=== PATIENT | male | born 1935 | race Caucasian/White ===

== ENCOUNTER 2018-10-22 18:35 | Inpatient (IN) | payer BC, OTHER ==
[2018-10-22] MEDS ORDERED: ACETAMINOPHEN 1000 MG/100 ML VIAL (NON FORMULARY) IVPB ONE ×2 (18:50→19:13)
[2018-10-22] MEDS ORDERED: ACETAMINOPHEN INJECTION 100 ML IVPB ONE (19:08)
[2018-10-22] MEDS ORDERED: ALBUTEROL SO4 2.5/IPRATROPIUM 0.5 INH SOL 3 ML VIAL.NEB. NEB ONE ×4 (19:09→20:50)
--- NOTE | 2018-10-22 19:13 | PDOC ---
History of Present Illness - History of Present Illness Initial Comments: 10/22/18 19:29 The patient is a 83 year old male, with a significant past medical history of Afib (s/p defibrillator), HTN, HLD, ?CVA, who presents to the emergency department with, 2 days of fever, cough, shortness of breath, and nausea with emesis. Patient describes his cough as productive and he is positive for sick contacts (his ). He denies any recent headache or dizziness. He denies any recent diarrhea or constipation. He denies any recent chest pain, palpitations, or diaphoresis. He denies any recent dysuria, frequency, urgency or hematuria. Allergies: NKA Past surgical history: None reported. Social History: Nonsmoker. Denies EtOH use and recreational drug use. Primary Care Physician: Dr. Onofre <Miki Stevenson - Last Filed: 10/22/18 19:28> - General History Source: Patient Exam Limitations: No Limitations <Milagros Fuller - Last Filed: 10/22/18 22:33> - General Chief Complaint: Shortness of Breath Stated Complaint: SOB Past History <Miki Stevenson - Last Filed: 10/22/18 19:28> - Past Medical History Cardiac Disorders: Yes (DEFIBULATOR, AFIB) COPD: No HTN: Yes Hypercholesterolemia: Yes - Surgical History Cardiac Surgery: Yes (DEFIB) - Suicide/Smoking/Psychosocial Hx Smoking History: Never smoked Hx Alcohol Use: No Drug/Substance Use Hx: No <Milagros Fuller - Last Filed: 10/22/18 22:33> - Past Medical History Allergies/Adverse Reactions: Allergies Allergy/AdvReac Type Severity Reaction Status Date / Time No Known Allergies Allergy Verified 10/22/18 18:36 Home Medications: Ambulatory Orders Carvedilol [Coreg -] 18.75 mg PO BID 10/22/18 Furosemide [Lasix] 20 mg PO DAILY 10/22/18 Lisinopril [Zestril] 5 mg PO DAILY 10/22/18 Rivaroxaban [Xarelto -] 20 mg PO DAILY 10/22/18 Simvastatin [Zocor -] 20 mg PO HS 10/22/18 Review of Systems - Review of Systems Comments:: 10/22/18 19:29 +GENERAL/CONSTITUTIONAL: Fever. Chills. HEAD, EYES, EARS, NOSE AND THROAT: No change in vision. No ear pain or discharge. No sore throat. +CARDIOVASCULAR: SOB. No chest pain. +RESPIRATORY: Cough. No wheezing, or hemoptysis. +GASTROINTESTINAL: Nausea. Vomiting. No diarrhea or constipation. GENITOURINARY: No dysuria, frequency, or change in urination. MUSCULOSKELETAL: No joint or muscle swelling or pain. No neck or back pain. SKIN: No rash NEUROLOGIC: No headache, vertigo, loss of consciousness, or change in strength/ sensation. ENDOCRINE: No increased thirst. No abnormal weight change. HEMATOLOGIC/LYMPHATIC: No anemia, easy bleeding, or history of blood clots. ALLERGIC/IMMUNOLOGIC: No hives or skin allergy. All Other Systems: Reviewed and Negative <Miki Stevenson - Last Filed: 10/22/18 19:28> *Physical Exam - Vital Signs Last Vital Signs Temp Pulse Resp BP Pulse Ox 103.0 F H 92 H 21 H 120/73 96 10/22/18 18:52 10/22/18 18:36 10/22/18 18:36 10/22/18 18:36 10/22/18 19:08 <Miki Stevenson - Last Filed: 10/22/18 19:28> - Vital Signs Last Vital Signs Temp Pulse Resp BP Pulse Ox 103.0 F H 92 H 21 H 120/73 96 10/22/18 18:52 10/22/18 18:36 10/22/18 18:36 10/22/18 18:36 10/22/18 19:08 - Physical Exam Comments: 10/22/18 19:13 pt tachypneic, tachycardia, hypoxic 95% on room air, lung exam with bilat wheezes at bases and decreased air flow on expiration. heart irreg reg tachycardia. no mrg. abd soft nt nd. ext wwp no edema. no calf tendernss. skin warma nd dry no rash. alert oriented x 3. <Milagros Fuller - Last Filed: 10/22/18 22:33> Moderate Sedation - Procedure Monitoring Vital Signs: Procedure Monitoring Vital Signs Temperature 103.0 F H 10/22/18 18:52 Pulse Rate 92 H 10/22/18 18:36 Respiratory Rate 21 H 10/22/18 18:36 Blood Pressure 120/73 10/22/18 18:36 O2 Sat by Pulse Oximetry (%) 96 10/22/18 19:08 <Miki Stevenson - Last Filed: 10/22/18 19:28> - Procedure Monitoring Vital Signs: Procedure Monitoring Vital Signs Temperature 103.0 F H 10/22/18 18:52 Pulse Rate 92 H 10/22/18 18:36 Respiratory Rate 21 H 10/22/18 18:36 Blood Pressure 120/73 10/22/18 18:36 O2 Sat by Pulse Oximetry (%) 96 10/22/18 19:08 <Milagros Fuller - Last Filed: 10/22/18 22:33> ED Treatment Course - LABORATORY CBC & Chemistry Diagram: 10/22/18 19:07 10/22/18 19:07 - Medications Given in the ED: ED Medications Discontinued Medications Generic Name Dose Route Start Last Admin Trade Name Freq PRN Reason Stop Dose Admin Acetaminophen 1,000 mg 10/22/18 18:50 10/22/18 19:19 Ofirmev Injection - IVPB 10/22/18 18:51 1,000 mg ONCE ONE Administration <Miki Stevenson - Last Filed: 10/22/18 19:28> - LABORATORY CBC & Chemistry Diagram: 10/22/18 19:07 10/22/18 19:07 <Milagros Fuller - Last Filed: 10/22/18 22:33> Medical Decision Making - Medical Decision Making 10/22/18 19:10 83 yo male h/o afib, pacer, chf htn HLD here with c/o cough congestion and fever. started night prior. positive sick contact with cough. cough productive phlegm. does have associated n/v no h/o lung disease. no rash. no abd pain. no other complaints. no modfactors. did not take any medication priroto arrival. on exam pt tachypneic, tachycardia, hypoxic 95% on room air, lung exam with bilat wheezes at bases and decreased air flow on expiration. heart irreg reg tachycardia. no mrg. abd soft nt nd. ext wwp no edema. no calf tendernss. skin warma nd dry no rash. alert oriented x 3. differential: chf, pna, effusion, influenzae, afib with rvr. sepsis. uti, plan labs ua cultures. flu duoneb for wheezing. will give rat control after fluid hydration pending cxr r/o chf. labs tylenol reassess. will require admission. 10/22/18 19:13 10/22/18 20:56 d/w dr Blue Wong who states he does not admit to [place] ask to admit to hospitalist. pt HR is improved to 95 with fever control. breathing improved with duoneb. will provide second neb. awaiting flu swab. given ceftriaxone and azithromycin for infiltrate on xray. 10/22/18 22:32 following second neb pt oxygen sat 100 on 2 L, breathing comfortably, heart rate 98, awaiting bed placement. c/w quarry plug and feather driller marko vela who will come to evaluate pt for admission. <Milagros Fuller - Last Filed: 10/22/18 22:33> *DC/Admit/Observation/Transfer - Attestations Scribe Attestion: 10/22/18 19:29 Documentation prepared by Miki Stevenson, acting as ophthalmic medical technologist for Milagros Fuller MD. <Miki Stevenson - Last Filed: 10/22/18 19:28> - Discharge Dispostion Decision to Admit order: Yes <Milagros Fuller - Last Filed: 10/22/18 22:33> Diagnosis at time of Disposition: Pneumonia, Atrial fibrillation with RVR - Discharge Dispostion Condition at time of disposition: Stable - Referrals Referrals: Casey Onofre MD [Primary Care Provider] - - Patient Instructions - Post Discharge Activity
[2018-10-22 19:27] LABS: BASO % 1.5 % (0-2.0); EOS % 0.3 % (0-4.5); HEMOGLOBIN 14.7 GM/dl (11.7-16.9); MEAN CELL VOLUME 90.4 fl (80-96); MEAN PLT VOLUME 9.9 fl (7.5-11.1); MONO % 7.5 % (3.8-10.2); NEUT % 84.7 % (42.8-82.8); PLATELET COUNT 174 K/MM3 (134-434); RBC 5.09 M/mm3 (4.00-5.60); RDW 14.2 % (11.9-15.9)
[2018-10-22 19:32] LABS: ACTIVATED PTT 27.5 SECONDS (25.2-36.5)
[2018-10-22 19:34] LABS: ALBUMIN 3.9 g/dl (3.5-5.0); ALK PHOS 51 U/L (32-92); ANION GAP 11 MMOL/L (8-16); BILIRUBIN,TOTAL 1.2 mg/dl (0.2-1.0); BLOOD UREA NITROGEN 23 mg/dl (7-18); CALCIUM 8.6 mg/dl (8.4-10.2); CHLORIDE 100 mmol/L (98-107); CO2 22 mmol/L (22-28); CREATININE 1.2 mg/dl (0.6-1.3); GLUCOSE,RANDOM 204 mg/dl (74-106); POTASSIUM 4.3 mmol/L (3.5-5.1); SGOT/AST 32 U/L (10-42); SGPT/ALT 28 U/L (10-40); SODIUM 133 mmol/L (136-145); TOT PROT 7.3 g/dl (6.4-8.3)
[2018-10-22 19:36] LABS: INR 1.39 (0.82-1.09); PROTHROMBIN TIME (PATIENT) 15.5 SEC (10.2-13.0)
[2018-10-22] MEDS ORDERED: CEFTRIAXONE 1,000 MG in DEXTROSE 5%-WATER - 50 ML IVPB ONE (20:11)
[2018-10-22] MEDS ORDERED: AZITHROMYCIN IVPB 500 MG in DEXTROSE 5%-WATER - 250 ML IVPB ONE (20:11)
[2018-10-22] MEDS ORDERED: AZITHROMYCIN 500 MG VIAL IVPB ONE (20:18)
[2018-10-22] MEDS ORDERED: cefTRIAXone SODIUM 1 GM VIAL ONE (20:18)
[2018-10-22 20:43] LABS: VENOUS PC02 40.4 mmHg (38-52); VENOUS PH 7.39 (7.32-7.42); VENOUS PO2 54.9 mmHg (28-48)
[2018-10-22] MEDS ORDERED: SODIUM CHLORIDE 1,000 ML IV SCH (21:45)
--- NOTE | 2018-10-22 21:52 | HP ---
CHIEF COMPLAINT:Shortness of breath PCP:Kingston Dooley HISTORY OF PRESENT ILLNESS: Samantha Middleton is a 83 yr old M, with a significant past medical history of Afib (s/p defibrillator), HTN, HLD, ?CVA, who presents to the emergency department with, 2 days of fever, cough, shortness of breath, and nausea with emesis. Patient with dry cough, also ill at home. pt in ED reported in Afib with RVR, after duonebs and Fluids, HR went down to 90 's. BNP elevated 6681 ER course was notable for: (1)Febrile 103 (2) Afib w/RVR (3)Tachypneic Recent Travel: PAST MEDICAL HISTORY:Afib, s/p defibrillator, HTN, HLD, CVA PAST SURGICAL HISTORY:Defibrillator Social History: Smoking:Denies Alcohol:Denies Drugs: Denies Family History: Allergies No Known Allergies Allergy (Verified 10/22/18 18:36) HOME MEDICATIONS: Home Medications Medication Instructions Recorded Carvedilol [Coreg -] 18.75 mg PO BID 10/22/18 Furosemide [Lasix] 20 mg PO DAILY 10/22/18 Lisinopril [Zestril] 5 mg PO DAILY 10/22/18 Rivaroxaban [Xarelto -] 20 mg PO DAILY 10/22/18 Simvastatin [Zocor -] 20 mg PO HS 10/22/18 REVIEW OF SYSTEMS CONSTITUTIONAL: Absent: fever, chills, diaphoresis, generalized weakness, malaise, loss of appetite, weight change HEENT: Absent: rhinorrhea, nasal congestion, throat pain, throat swelling, difficulty swallowing, mouth swelling, ear pain, eye pain, visual changes CARDIOVASCULAR: Absent: chest pain, syncope, palpitations, irregular heart rate, lightheadedness , peripheral edema RESPIRATORY: +Cough, sob, Absent: dyspnea with exertion, orthopnea, wheezing, stridor, hemoptysis GASTROINTESTINAL: Absent: abdominal pain, abdominal distension, nausea, vomiting, diarrhea, constipation, melena, hematochezia GENITOURINARY: Absent: dysuria, frequency, urgency, hesitancy, hematuria, flank pain, genital pain MUSCULOSKELETAL: Absent: myalgia, arthralgia, joint swelling, back pain, neck pain SKIN: Absent: rash, itching, pallor HEMATOLOGIC/IMMUNOLOGIC: Absent: easy bleeding, easy bruising, lymphadenopathy, frequent infections ENDOCRINE: Absent: unexplained weight gain, unexplained weight loss, heat intolerance, cold intolerance NEUROLOGIC: Absent: headache, focal weakness or paresthesias, dizziness, unsteady gait, seizure, mental status changes, bladder or bowel incontinence PSYCHIATRIC: Absent: anxiety, depression, suicidal or homicidal ideation, hallucinations. PHYSICAL EXAMINATION Vital Signs - 24 hr 10/22/18 10/22/18 10/22/18 18:36 18:52 19:08 Temperature 97.7 F 103.0 F H Pulse Rate 92 H Pulse Rate [ Apical] Respiratory 21 H Rate Blood Pressure 120/73 Blood Pressure [Arm] O2 Sat by Pulse 96 96 Oximetry (%) 10/22/18 10/22/18 20:31 21:27 Temperature 98.4 F Pulse Rate Pulse Rate [ 113 H 108 H Apical] Respiratory 22 H 21 H Rate Blood Pressure Blood Pressure 106/62 [Arm] O2 Sat by Pulse 98 100 Oximetry (%) GENERAL: Awake, alert, and fully oriented, in no acute distress. HEAD: Normal with no signs of trauma. EYES: Pupils equal, round and reactive to light, extraocular movements intact, sclera anicteric, conjunctiva clear. No lid lag. EARS, NOSE, THROAT: Ears normal, nares patent, oropharynx clear without exudates. Moist mucous membranes. NECK: Normal range of motion, supple without lymphadenopathy, JVD, or masses. LUNGS: + wheezing bilaterally. No accessory muscle use. HEART: Regular rate and rhythm, normal S1 and S2 without murmur, rub or gallop. ABDOMEN: Soft, nontender, not distended, normoactive bowel sounds, no guarding, no rebound, no masses. No hepatomegaly or splenomegaly. MUSCULOSKELETAL: Normal range of motion at all joints. No bony deformities or tenderness. No CVA tenderness. UPPER EXTREMITIES: 2+ pulses, warm, well-perfused. No cyanosis. No clubbing. No peripheral edema. LOWER EXTREMITIES: 2+ pulses, warm, well-perfused. No calf tenderness. No peripheral edema. NEUROLOGICAL: Cranial nerves II-XII intact. Normal speech. Normal gait. PSYCHIATRIC: Cooperative. Good eye contact. Appropriate mood and affect. SKIN: Warm, dry, normal turgor, no rashes or lesions noted, normal capillary refill. Laboratory Results - last 24 hr 0110/22/18 10/22/18 18:55 19:07 19:07 WBC 10.0 RBC 5.09 Hgb 14.7 Hct 46.0 MCV 90.4 MCH 29.0 MCHC 32.0 RDW 14.2 Plt Count 174 MPV 9.9 Absolute Neuts (auto) 8.4 Neutrophils % 84.7 H Lymphocytes % 6.0 L Monocytes % 7.5 Eosinophils % 0.3 Basophils % 1.5 PT with INR 15.5 H INR 1.39 H PTT (Actin FS) 27.5 VBG pH POC VBG pCO2 POC VBG pO2 Mixed VBG HCO3 Sodium Potassium Chloride Carbon Dioxide Anion Gap BUN Creatinine Creat Clearance w eGFR Random Glucose Lactic Acid Calcium Total Bilirubin AST ALT Alkaline Phosphatase Troponin I 0.03 Total Protein Albumin Influenza A (Rapid) Influenza B (Rapid) 10/22/18 10/22/18 10/22/18 19:07 19:07 19:07 WBC RBC Hgb Hct MCV MCH MCHC RDW Plt Count MPV Absolute Neuts (auto) Neutrophils % Lymphocytes % Monocytes % Eosinophils % Basophils % PT with INR INR PTT (Actin FS) VBG pH 7.39 POC VBG pCO2 40.4 POC VBG pO2 54.9 H Mixed VBG HCO3 23.8 Sodium 133 L Potassium 4.3 Chloride 100 Carbon Dioxide 22 Anion Gap 11 BUN 23 H Creatinine 1.2 Creat Clearance w eGFR 58.11 Random Glucose 204 H Lactic Acid Calcium 8.6 Total Bilirubin 1.2 H AST 32 ALT 28 Alkaline Phosphatase 51 Troponin I Total Protein 7.3 Albumin 3.9 Influenza A (Rapid) Negative Influenza B (Rapid) Negative 10/22/18 19:07 WBC RBC Hgb Hct MCV MCH MCHC RDW Plt Count MPV Absolute Neuts (auto) Neutrophils % Lymphocytes % Monocytes % Eosinophils % Basophils % PT with INR INR PTT (Actin FS) VBG pH POC VBG pCO2 POC VBG pO2 Mixed VBG HCO3 Sodium Potassium Chloride Carbon Dioxide Anion Gap BUN Creatinine Creat Clearance w eGFR Random Glucose Lactic Acid 1.8 Calcium Total Bilirubin AST ALT Alkaline Phosphatase Troponin I Total Protein Albumin Influenza A (Rapid) Influenza B (Rapid) ASSESSMENT/PLAN: Samantha Daly is a patient is a 83 year old male, medical history of Afib (s/ p defibrillator), HTN, HLD, ?CVA, admitted for Admitting Diagnosis CAP Chronic problems Afib HTN HLD A/P: #CAP -admit to tele -received IV rocephin and azithro -will change to IV zosyn -duonebs -oxygen PRN -blood cx pending -influenza rapid neg -lactic wnl #CHF? -BNP > 6000 -no clinical signs of fluid overload (no edema, coughing,) -repeat BNP in AM -resume PO lasix in AM -cardio consult -Echo ordered #HTN #HLD #Afib, s/p defibrillator -on xarelto, coreg, statin Dispo: requires inpatient treatment GI/DVT prophylaxis -on xarelto Full Code Visit type - Emergency Visit Emergency Visit: Yes ED Registration Date: 10/22/18 Care time: The patient presented to the Emergency Department on the above date and was hospitalized for further evaluation of their emergent condition. - New Patient This patient is new to me today: Yes Date on this admission: 10/23/18 - Critical Care Critical Care patient: No
[2018-10-22] MEDS ORDERED: SODIUM CHLORIDE 0.9% 500 ML INFUS.BAG IV ONE (22:56)
[2018-10-23] MEDS ORDERED: ACETAMINOPHEN 325 MG TABLET (FP) PO PRN (00:32)
[2018-10-23 01:59] LABS: URINE APPEARANCE CLEAR; URINE BILIRUBIN NEGATIVE (<2.0 mg/dL); URINE COLOR YELLOW; URINE GLUCOSE (UA) NEGATIVE (NEGATIVE); URINE KETONE NEGATIVE (NEGATIVE); URINE LEUK ESTERASE NEGATIVE (NEGATIVE); URINE NITRITE NEGATIVE (NEGATIVE); URINE PROTEIN NEGATIVE (NEGATIVE); URINE UROBILINOGEN NEGATIVE mg/dL (0.2-1.0)
[2018-10-23] MEDS ORDERED: PIPERACILLIN/TAZOB 3.375 GM 3.375 GM in DEXTROSE 5%-WATER - 50 ML IVPB ONE (06:00)
[2018-10-23] MEDS ORDERED: DEXTROSE 5%-WATER - 50 ML IVPB ONE (06:32)
[2018-10-23] MEDS ORDERED: PIPERACILLIN/TAZOBACTAM 3.375 GM VIAL IVPB ONE (06:32)
[2018-10-23 08:15] LABS: HEMATOCRIT 41.2 % (35.4-49); HEMOGLOBIN 13.5 GM/dl (11.7-16.9); MCH 29.6 pg (25.7-33.7); MCHC 32.8 g/dl (32.0-35.9); MEAN CELL VOLUME 90.1 fl (80-96); MEAN PLT VOLUME 10.5 fl (7.5-11.1); PLATELET COUNT 146 K/MM3 (134-434); RBC 4.57 M/mm3 (4.00-5.60); RDW 14.1 % (11.9-15.9); WHITE BLOOD COUNT 8.2 K/mm3 (4.0-10.8)
[2018-10-23 08:37] LABS: ALBUMIN 3.2 g/dl (3.5-5.0); ALK PHOS 50 U/L (32-92); ANION GAP 9 MMOL/L (8-16); BILIRUBIN,TOTAL 0.7 mg/dl (0.2-1.0); BLOOD UREA NITROGEN 22 mg/dl (7-18); CALCIUM 7.9 mg/dl (8.4-10.2); CHLORIDE 103 mmol/L (98-107); CO2 23 mmol/L (22-28); CREATININE 1.3 mg/dl (0.6-1.3); GLUCOSE,RANDOM 156 mg/dl (74-106); MAGNESIUM 1.8 mg/dL (1.8-2.4); POTASSIUM 4.1 mmol/L (3.5-5.1); SGOT/AST 56 U/L (10-42); SGPT/ALT 40 U/L (10-40); SODIUM 135 mmol/L (136-145); TOT PROT 6.2 g/dl (6.4-8.3)
[2018-10-23] MEDS ORDERED: CARVEDILOL 12.5 MG TABLET (FP) ONE ×2 (09:48→22:11)
[2018-10-23] MEDS ORDERED: CARVEDILOL 6.25 MG TABLET (FP) ONE ×2 (09:48→22:11)
[2018-10-23] MEDS: CARVEDILOL PO SCH ×2 (09:57→22:13)
[2018-10-23] MEDS ORDERED: CARVEDILOL 12.5 MG TABLET (FP) PO SCH (10:00)
[2018-10-23] MEDS ORDERED: LISINOPRIL 5 MG TABLET (FP) PO SCH (10:00)
[2018-10-23] MEDS ORDERED: FUROSEMIDE 20 MG TABLET (FP) PO SCH (10:00)
--- NOTE | 2018-10-23 10:56 | PN ---
Physical Exam: SUBJECTIVE: Patient seen and examined. OBJECTIVE: Vital Signs Period Temp Pulse Resp BP Sys/Dangelo Pulse Ox Last 24 Hr 97.6 F-103.0 F 70-126 18-25 99-129/57-86 96-100 GENERAL: The patient is awake, alert, and fully oriented, in no acute distress. LUNGS: Diffuse crackles, no accessory muscle use, speaking in complete sentences HEART: Regular rate and rhythm, S1, S2 ABDOMEN: Soft, nontender, nondistended, normoactive bowel sounds EXTREMITIES: 2+ pulses, warm, well-perfused, no edema. No calf tenderness NEUROLOGICAL: Cranial nerves II through XII grossly intact. Normal speech, gait not observed. PSYCH: Normal mood, normal affect. SKIN: Warm, dry, normal turgor Laboratory Results - last 24 hr 10/22/18 10/22/18 10/22/18 18:55 19:07 19:07 WBC 10.0 RBC 5.09 Hgb 14.7 Hct 46.0 MCV 90.4 MCH 29.0 MCHC 32.0 RDW 14.2 Plt Count 174 MPV 9.9 Absolute Neuts (auto) 8.4 Neutrophils % 84.7 H Lymphocytes % 6.0 L Monocytes % 7.5 Eosinophils % 0.3 Basophils % 1.5 PT with INR 15.5 H INR 1.39 H PTT (Actin FS) 27.5 VBG pH POC VBG pCO2 POC VBG pO2 Mixed VBG HCO3 Sodium Potassium Chloride Carbon Dioxide Anion Gap BUN Creatinine Creat Clearance w eGFR Random Glucose Lactic Acid Calcium Magnesium Total Bilirubin AST ALT Alkaline Phosphatase Troponin I 0.03 B-Natriuretic Peptide Total Protein Albumin Urine Color Urine Appearance Urine pH Ur Specific [place] Urine Protein Urine Glucose (UA) Urine Ketones Urine Blood Urine Nitrite Urine Bilirubin Urine Urobilinogen Ur Leukocyte Esterase Influenza A (Rapid) Influenza B (Rapid) 10/22/18 10/22/18 10/22/18 19:07 19:07 19:07 WBC RBC Hgb Hct MCV MCH MCHC RDW Plt Count MPV Absolute Neuts (auto) Neutrophils % Lymphocytes % Monocytes % Eosinophils % Basophils % PT with INR INR PTT (Actin FS) VBG pH 7.39 POC VBG pCO2 40.4 POC VBG pO2 54.9 H Mixed VBG HCO3 23.8 Sodium 133 L Potassium 4.3 Chloride 100 Carbon Dioxide 22 Anion Gap 11 BUN 23 H Creatinine 1.2 Creat Clearance w eGFR 58.11 Random Glucose 204 H Lactic Acid Calcium 8.6 Magnesium Total Bilirubin 1.2 H AST 32 ALT 28 Alkaline Phosphatase 51 Troponin I B-Natriuretic Peptide Total Protein 7.3 Albumin 3.9 Urine Color Urine Appearance Urine pH Ur Specific [place] Urine Protein Urine Glucose (UA) Urine Ketones Urine Blood Urine Nitrite Urine Bilirubin Urine Urobilinogen Ur Leukocyte Esterase Influenza A (Rapid) Negative Influenza B (Rapid) Negative 10/22/18 10/22/18 10/22/18 19:07 20:20 23:00 WBC RBC Hgb Hct MCV MCH MCHC RDW Plt Count MPV Absolute Neuts (auto) Neutrophils % Lymphocytes % Monocytes % Eosinophils % Basophils % PT with INR INR PTT (Actin FS) VBG pH POC VBG pCO2 POC VBG pO2 Mixed VBG HCO3 Sodium Potassium Chloride Carbon Dioxide Anion Gap BUN Creatinine Creat Clearance w eGFR Random Glucose Lactic Acid 1.8 Calcium Magnesium Total Bilirubin AST ALT Alkaline Phosphatase Troponin I B-Natriuretic Peptide 6681.5 H Total Protein Albumin Urine Color Yellow Urine Appearance Clear Urine pH 5.0 Ur Specific [place] 1.023 Urine Protein Negative Urine Glucose (UA) Negative Urine Ketones Negative Urine Blood Negative Urine Nitrite Negative Urine Bilirubin Negative Urine Urobilinogen Negative Ur Leukocyte Esterase Negative Influenza A (Rapid) Influenza B (Rapid) 10/23/18 10/23/18 10/23/18 07:22 07:22 07:22 WBC 8.2 RBC 4.57 Hgb 13.5 Hct 41.2 MCV 90.1 MCH 29.6 MCHC 32.8 RDW 14.1 Plt Count 146 MPV 10.5 Absolute Neuts (auto) Neutrophils % Lymphocytes % Monocytes % Eosinophils % Basophils % PT with INR INR PTT (Actin FS) VBG pH POC VBG pCO2 POC VBG pO2 Mixed VBG HCO3 Sodium 135 L Potassium 4.1 Chloride 103 Carbon Dioxide 23 Anion Gap 9 BUN 22 H Creatinine 1.3 Creat Clearance w eGFR 52.98 Random Glucose 156 H D Lactic Acid Calcium 7.9 L Magnesium 1.8 Total Bilirubin 0.7 AST 56 H D ALT 40 D Alkaline Phosphatase 50 Troponin I B-Natriuretic Peptide 67907.7 H Total Protein 6.2 L Albumin 3.2 L Urine Color Urine Appearance Urine pH Ur Specific [place] Urine Protein Urine Glucose (UA) Urine Ketones Urine Blood Urine Nitrite Urine Bilirubin Urine Urobilinogen Ur Leukocyte Esterase Influenza A (Rapid) Influenza B (Rapid) Active Medications Generic Name Dose Route Start Last Admin Trade Name Herberthq PRN Reason Stop Dose Admin Acetaminophen 650 mg 10/23/18 00:32 Tylenol - PO Q4H PRN FEVER Atorvastatin Calcium 10 mg 10/23/18 22:00 Lipitor - PO HS [facility] Carvedilol 6.25 mg/ Carvedilol 18.75 mg 10/23/18 10:00 10/23/18 09:57 12.5 mg PO 18.75 mg BID STEPHAN Administration Furosemide 20 mg 10/23/18 10:00 10/23/18 09:56 Lasix - PO Not Given DAILY [facility] Azithromycin 500 mg in 250 mls @ 250 mls/hr 10/23/18 11:00 Zithromax 500mg Ivpb (Pre-Docked) IVPB 10/26/18 10:59 DAILY [facility] Ceftriaxone Sodium 50 mls @ 100 mls/hr 10/23/18 11:00 Ceftriaxone 1 Gm-D5w Bag IVPB DAILY [facility] Protocol Lisinopril 5 mg 10/23/18 10:00 10/23/18 09:56 Prinivil PO Not Given DAILY [facility] Rivaroxaban 20 mg 10/23/18 18:00 Xarelto - PO DAILY@1800 [facility] ASSESSMENT/PLAN 83 year-old male with a PMH significant for HTN, HLD, CVA, diastolic HF, afib on Xarelto, s/p defibrillator. Admitted for HF exacerbation and pneumonia. 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; says never diagnosed with lung disease; not on steroids --flu swab negative, cultures pending --azithro and ceftriaxone --ID consult pending --pumonary consult pending --pending transfer to [facility] telemetry/ICU Acute on chronic diastolic heart failure s/p PPM --pulmonary congestion, BNP 14,331 --seen and evaluated by cardiology, lasix IV 40mg x 1 given --continue carvedilol, hold lisinopril --echo pending Hypertension --hold lisinopril due to hypotension Atrial fibrillation --continue carvedilol; per cardiology if further rate control needed consider diltiazem but rate should normalize with diuresis --continue Xarelto Hyperlipidemia --contniue Liptitor Visit type - Emergency Visit Emergency Visit: Yes ED Registration Date: 10/22/18 Care time: The patient presented to the Emergency Department on the above date and was hospitalized for further evaluation of their emergent condition. - New Patient This patient is new to me today: Yes Date on this admission: 10/23/18 - Critical Care Critical Care patient: No
[2018-10-23] MEDS ORDERED: CEFTRIAXONE 1 G/50 ML PREMIX 50 ML IVPB SCH (11:00)
[2018-10-23] MEDS: AZITHROMYCIN IVPB 500 MG/250 ML BAG IVPB SCH (11:45)
--- NOTE | 2018-10-23 12:39 | CONSULT ---
Consult Consult Specialty:: Cardiology Referred by:: Medicine Reason for Consultation:: CHF, AF - History of Present Illness Chief Complaint: Cough History of Present Illness: 83 yo male Known h/o persistent AF on DOAC for 5 years, ? prior CVA Severe LV dysfunction s/p ICD Followed closely by Dr. Nam (?sp) EPS and Dr. Dao (general cards) Last ween 6 weeks ago Has HTN and HPL Now presents after 2 days of cough, dyspnea Had fever to 103 yesterday States compliance with medications and no dietary indescretions No chest pains, no palps, no LE edema or weight gain - History Source History Provided By: Patient, Family Member Limitations to Obtaining History: No Limitations - Past Medical History RN PHYSICIAN OFFICE: Yes: CVA (?) Cardio/Vascular: Yes: AFIB (LV dysfunction with ICD), HTN - Alcohol/Substance Use Hx Alcohol Use: Yes (OCCASIONAL) - Smoking History Smoking history: Never smoked Have you smoked in the past 12 months: No Home Medications - Allergies Allergies/Adverse Reactions: Allergies Allergy/AdvReac Type Severity Reaction Status Date / Time No Known Allergies Allergy Verified 10/22/18 18:36 - Home Medications Home Medications: Ambulatory Orders Carvedilol [Coreg -] 18.75 mg PO BID 10/22/18 Furosemide [Lasix] 20 mg PO DAILY 10/22/18 Lisinopril [Zestril] 5 mg PO DAILY 10/22/18 Rivaroxaban [Xarelto -] 20 mg PO DAILY 10/22/18 Simvastatin [Zocor -] 20 mg PO HS 10/22/18 Family Disease History - Family Disease History Family History: Unremarkable Review of Systems - Review of Systems Constitutional: reports: Fever Eyes: reports: No Symptoms HENT: reports: No Symptoms Neck: reports: No Symptoms Cardiovascular: reports: Shortness of Breath Respiratory: reports: Cough, Exercise Intolerance, SOB Gastrointestinal: reports: No Symptoms Genitourinary: reports: No Symptoms Integumentary: reports: No Symptoms Neurological: reports: No Symptoms Endocrine: reports: No Symptoms Hematology/Lymphatic: reports: No Symptoms Physical Exam Vital Signs: Vital Signs Temperature 99.1 F 10/23/18 10:14 Pulse Rate 91 H 10/23/18 10:14 Respiratory Rate 18 10/23/18 10:14 Blood Pressure 99/57 L 01/05/19 10:14 O2 Sat by Pulse Oximetry (%) 98 10/23/18 10:14 Constitutional: Yes: Well Nourished, No Distress, Calm Eyes: Yes: WNL HENT: Yes: WNL Neck: Yes: Supple Cardiovascular: Yes: Tachycardia, Pulse Irregular, JVD Respiratory: Yes: Poor Air Entry, Rales, Wheezes Gastrointestinal: Yes: Normal Bowel Sounds, Soft Musculoskeletal: Yes: WNL Extremities: Yes: WNL Edema: No Labs: CBC, BMP 10/23/18 07:22 10/23/18 07:22 Imaging - Results X-ray: Image Reviewed (Pulmonary venous congestion) EKG: Image Reviewed (ECG on 10/23/2018 at 06:17 Afib at 121/min with anteroseptal Qs, RAD. Low voltage) Assessment/Plan 83 yo male with HTN, HPL, LV dysfunction, AF now with Acute decompensated HF 1) HFrEF -Warm and wet physiology -Suspect triggered by ?URI with fever history -Would give Lasix 40mg IV BID (Hold for SBP <90) -Continue Coreg -Hold ANURADHA in setting of lowish BP -Supportive care for ?URI 2) AFib -Likely realted to underlying decomensated state -Continue coreg at current dose -If need further rate control consider Dilt but rate should normalize with diuresis -Continue Xarelto 3) Would be helpful to have his recent echo from his PMD office who his family states has his most complete records.
--- NOTE | 2018-10-23 12:55 | EKG ---
Test Reason : Blood Pressure : / mmHG Vent. Rate : 123 BPM Atrial Rate : 133 BPM P-R Int : 000 ms QRS Dur : 114 ms QT Int : 328 ms P-R-T Axes : 000 260 063 degrees QTc Int : 469 ms ATRIAL FIBRILLATION WITH RAPID VENTRICULAR RESPONSE LEFT AXIS DEVIATION ANTEROLATERAL INFARCT , AGE UNDETERMINED ABNORMAL ECG NO PREVIOUS ECGS AVAILABLE Confirmed by MD HAYWOOD MOYSES ([id number]) on 10/23/2018 12:55:23 PM Referred By: MD NAVAS Confirmed By:MAYE HAYWOOD MD
[2018-10-23] MEDS ORDERED: FUROSEMIDE 40 MG/4 ML INJECTABLE VIAL IVPUSH SCH (13:00)
[2018-10-23] MEDS ORDERED: ALBUTEROL SO4 2.5/IPRATROPIUM 0.5 INH SOL 3 ML VIAL.NEB. NEB ONE (14:47)
[2018-10-23] MEDS ORDERED: ACETAMINOPHEN 1000 MG/100 ML VIAL (NON FORMULARY) IVPB PRN (14:52)
[2018-10-23] MEDS ORDERED: SODIUM CHLORIDE 250 ML IV STA ×2 (15:21→16:09)
[2018-10-23] MEDS ORDERED: dilTIAZem HCL 50 MG/10 ML - 10 ML VIAL IVPUSH ONE (16:03)
--- NOTE | 2018-10-23 16:18 | HOSP ---
Subjective - Review of Symptoms Events since last encounter: Patient seen and examined. UOP 350cc's after lasix administration. Blood pressure dropped to 80/50 (60). SpO2 88% on RA, 99% on 2L. Pulse 107. 3:30pm Gave 250cc bolus. Repeat BP 70/40 (50) Rate 90s 4:15 pm Giving second bolus 250cc. Accepted for ICU transfer by Dr. Martínez. 4:40 pm BP 74/52 (59) rate 110 4:50pm Waiting for EMS. Advised will be one hour. Mentating well. SpO2 96% on 2L. 5:40pm BP 84/53 (63) Physical Examination Vital Signs: Vital Signs Temperature 101.7 F H 10/23/18 14:50 Pulse Rate 107 H 10/23/18 15:07 Respiratory Rate 20 10/23/18 15:07 Blood Pressure 82/56 L 10/23/18 15:07 O2 Sat by Pulse Oximetry (%) 97 10/23/18 14:23 Labs: CBC, BMP 10/23/18 07:22 10/23/18 07:22
[2018-10-23] MEDS: ALBUTEROL SO4 2.5/IPRATROPIUM 0.5 INH SOL 3 ML VIAL.NEB. NEB SCH ×2 (16:20→20:00)
--- NOTE | 2018-10-23 16:51 | CON.ID ---
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: Yes: CVA (?) Cardio/Vascular: Yes: AFIB (LV dysfunction with ICD), HTN - Alcohol/Substance Use Hx Alcohol Use: Yes (OCCASIONAL) - Smoking History Smoking history: Never smoked Have you smoked in the past 12 months: No Home Medications - Allergies Allergies/Adverse Reactions: Allergies Allergy/AdvReac Type Severity Reaction Status Date / Time No Known Allergies Allergy Verified 10/22/18 18:36 - Home Medications Home Medications: Ambulatory Orders Carvedilol [Coreg -] 18.75 mg PO BID 10/22/18 Furosemide [Lasix] 20 mg PO DAILY 10/22/18 Lisinopril [Zestril] 5 mg PO DAILY 10/22/18 Rivaroxaban [Xarelto -] 20 mg PO DAILY 10/22/18 Simvastatin [Zocor -] 20 mg PO HS 10/22/18 Physical Exam Vital Signs: Vital Signs Temperature 98.9 F 10/23/18 16:30 Pulse Rate 107 H 10/23/18 16:30 Respiratory Rate 20 10/23/18 16:30 Blood Pressure 74/52 L 10/23/18 16:30 O2 Sat by Pulse Oximetry (%) 97 10/23/18 14:23 Labs: CBC, BMP 10/23/18 07:22 10/23/18 07:22
[2018-10-23] MEDS ORDERED: REFRIGERATED ANITBIOTICS ONE (17:08)
[2018-10-23] MEDS: CEFEPIME HCL/D5W 1 GM/50 ML BAG IVPB SCH (17:23)
[2018-10-23] MEDS ORDERED: RIVAROXABAN 10 MG TABLET PO SCH (18:00)
[2018-10-23] MEDS ORDERED: PIPERACILLIN/TAZOB 3.375 GM 3.375 GM in DEXTROSE 5%-WATER - 50 ML IVPB SCH (18:00)
--- NOTE | 2018-10-23 20:09 | CONSULT ---
Consult Consult Specialty:: CCM Referred by:: LEONORA rodríguez Reason for Consultation:: Hypotension - History of Present Illness Chief Complaint: hypotension History of Present Illness: 83M history of Afib s/p ICD on Xarelto, HTN, HLD, questionable history of CVA 5 years ago he is unsure, who presented to the hospital at [place] with a 3 days history of cough, stuffy nose, sore throat, nausea, and one episode of vomiting. He was noted to be febrile and it was thought he has a pneumonia. Chest CT negative for infiltrate or infectious process. Patient febrile to 103. UA negative. He endorses a "dry cough". He states his was just recently hospitalized for the same symptoms. Patient was seen by cardiology and was given lasix. Patient then dropped his BP to SBP 70's unresponsive to IV fluids. 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 upon arrival to ICU BP was 119/77 HR 109 saturating 97% on 2L nasal cannula. Patient feels much better. Reported episode of A fib with RVR in ED upon presentation. - History Source History Provided By: Patient, Medical Record Limitations to Obtaining History: No Limitations - Past Medical History [employer]: Yes: CVA (?) Cardio/Vascular: Yes: AFIB (LV dysfunction with ICD), HTN - Alcohol/Substance Use Hx Alcohol Use: Yes (OCCASIONAL) - Smoking History Smoking history: Never smoked Have you smoked in the past 12 months: No Home Medications - Allergies Allergies/Adverse Reactions: Allergies Allergy/AdvReac Type Severity Reaction Status Date / Time No Known Allergies Allergy Verified 10/22/18 18:36 - Home Medications Home Medications: Ambulatory Orders Carvedilol [Coreg -] 18.75 mg PO BID 10/22/18 Furosemide [Lasix] 20 mg PO DAILY 10/22/18 Lisinopril [Zestril] 5 mg PO DAILY 10/22/18 Rivaroxaban [Xarelto -] 20 mg PO DAILY 10/22/18 Simvastatin [Zocor -] 20 mg PO HS 10/22/18 Review of Systems - Review of Systems Constitutional: reports: Fever Eyes: reports: No Symptoms HENT: reports: No Symptoms Neck: reports: No Symptoms Cardiovascular: reports: No Symptoms Respiratory: reports: Cough, SOB Gastrointestinal: reports: Nausea, Vomiting Genitourinary: reports: No Symptoms Musculoskeletal: reports: No Symptoms Integumentary: reports: No Symptoms Neurological: reports: No Symptoms Endocrine: reports: No Symptoms Hematology/Lymphatic: reports: No Symptoms Psychiatric: reports: No Symptoms Physical Exam Vital Signs: Vital Signs Temperature 97.8 F 10/23/18 19:44 Pulse Rate 121 H 10/23/18 19:44 Respiratory Rate 18 10/23/18 19:44 Blood Pressure 96/76 10/23/18 19:44 O2 Sat by Pulse Oximetry (%) 97 10/23/18 14:23 Constitutional: Yes: Well Nourished, No Distress, Calm Eyes: Yes: Conjunctiva Clear, EOM Intact HENT: Yes: Atraumatic, Pharyngeal Erythema, Other (Dry mucous membranes) Neck: Yes: Supple Cardiovascular: Yes: Pulse Irregular, S1, S2 Respiratory: Yes: Regular, Rhonchi, Wheezes (occasional) Gastrointestinal: Yes: Normal Bowel Sounds, Soft Edema: No Neurological: Yes: Alert, Oriented Labs: CBC, BMP 10/23/18 07:22 10/23/18 07:22 Imaging - Results Chest X-ray: Report Reviewed, Image Reviewed Cat Scan: Report Reviewed, Image Reviewed Assessment/Plan 83M with history of HTN HLD A fib on Xarelto s/p ICD, presents to the hospital with nausea, vomiting, fever, stuffy nose, sore throat, being treated for suspected pneumonia presents to the ICU for hypotension after lasix. Problem List: Hypotension likely due to volume depletion HTN HLD questionable history of CVA likely Viral syndrome possible pneumonia hyperglycemia Plan: Given patient's symptoms of fever, stuffy nose, sore throat, nausea, vomiting, negative leukocytosis, negative CT chest for pneumonia, recent family member sick with the same symptoms I suspect patient has a viral syndrome. patient has been vomiting and has had poor oral intake and looks dry on exam and patient was given lasix which likely caused his hypotension. Will hydrate patient with gentle IVF hydration recheck labs in AM patient on azithromycin and cefepime but would consider stopping antibiotics as patient is feeling better and likely having symptoms from a viral infection would hold lasix and antihypertensives for now Case discussed with Dr. Martínez
[2018-10-23] MEDS ORDERED: LACTATED RINGERS SOLUTION 1,000 ML/1,000 ML INFUS.BAG IV SCH (20:15)
[2018-10-23] MEDS ORDERED: ATORVASTATIN CA 10 MG TABLET (FP) PO SCH (22:00)
[2018-10-23] MEDS ORDERED: CHLORHEXIDINE GLUCONATE 4% CLEANSER FOR DECOLONIZATION TP SCH (22:00)
[2018-10-23] MEDS: MUPIROCIN 2% TOPICAL OINTMENT FOR DECOLONIZATION NS SCH (22:08)
[2018-10-24] MEDS ORDERED: traZODone HCL 50 MG TABLET (FP) PO ONE (00:54)
[2018-10-24] MEDS ORDERED: DEXTROSE 5%-WATER 100 ML IVPB ONE ×2 (03:24→08:53)
[2018-10-24] MEDS ORDERED: CEFEPIME HCL 1 GM VIAL (RESTRICTED TO ID) ONE ×2 (03:24→08:53)
[2018-10-24] MEDS: CEFEPIME 1 GM in DEXTROSE 5%-WATER 100 ML IVPB SCH ×2 (03:34→09:05)
[2018-10-24] MEDS: CEFEPIME HCL/D5W 1 GM/50 ML BAG IVPB SCH (04:04)
[2018-10-24 06:20] LABS: BASO % 0.2 % (0-2.0); HEMATOCRIT 39.7 % (35.4-49); HEMOGLOBIN 12.8 GM/dL (11.7-16.9); LYMPH % 13.1 % (8-40); MCH 28.8 pg (25.7-33.7); MCHC 32.1 g/dl (32.0-35.9); MEAN CELL VOLUME 89.7 fl (80-96); MEAN PLT VOLUME 10.1 fl (7.5-11.1); MONO % 10.9 % (3.8-10.2); NEUT % 75.8 % (42.8-82.8); PLATELET COUNT 113 K/MM3 (134-434); RBC 4.42 M/mm3 (4.00-5.60); RDW 14.9 % (11.9-15.9); WHITE BLOOD COUNT 6.6 K/mm3 (4.0-10.0)
[2018-10-24 06:42] LABS: BLOOD UREA NITROGEN 28 mg/dL (7-18); CHLORIDE 103 mmol/L (98-107); CREATININE 1.7 mg/dL (0.55-1.3); GLUCOSE,RANDOM 100 mg/dL (74-106); POTASSIUM 3.8 mmol/L (3.5-5.1); SODIUM 140 mmol/L (136-145)
[2018-10-24 06:43] LABS: ALK PHOS 71 U/L (45-117); ANION GAP 10 MMOL/L (8-16); BILIRUBIN,TOTAL 0.5 mg/dL (0.2-1); CALCIUM 7.7 mg/dL (8.5-10.1); CO2 27 mmol/L (21-32); MAGNESIUM 1.8 mg/dL (1.8-2.4); PHOSPHOROUS 4.4 mg/dL (2.5-4.9); SGOT/AST 86 U/L (15-37); SGPT/ALT 76 U/L (13-61)
--- NOTE | 2018-10-24 08:14 | PN ---
Physical Exam: SUBJECTIVE: Patient seen and examined. Denies chest pain/palpitations. Endorses cough, denies SOB OBJECTIVE: Vital Signs Period Temp Pulse Resp BP Sys/Dangelo Pulse Ox Last 24 Hr 97.4 F-101.7 F 54-126 18-29 71-105/49-81 97-99 GENERAL: Awake, alert, and fully oriented, in no acute distress HEAD: No signs of trauma, normocephalic, atraumatic EYES: PERRLA, EOMI, sclera anicteric, conjunctiva clear ENT: Hearing grossly normal, nares patent, oropharynx clear without exudates. Moist mucosa LUNGS: No distress, speaks full sentences, rhonchi diffusely b/l HEART: Tachyardic with irregularly irregular rhythm, no murmurs appreciated, peripheral pulses normal and equal bilaterally ABDOMEN: Soft, nontender, normoactive bowel sounds. No guarding, no rebound EXTREMITIES : Normal inspection, Normal range of motion, no edema. No clubbing or cyanosis NEUROLOGICAL: Cranial nerves II through XII grossly intact. Normal speech, no focal sensorimotor deficits SKIN: Warm, Dry Active Medications Generic Name Dose Route Start Last Admin Trade Name Freq PRN Reason Stop Dose Admin Acetaminophen 650 mg 10/23/18 00:32 Tylenol - PO Q4H PRN FEVER Acetaminophen 1,000 mg 10/23/18 14:52 10/23/18 14:50 Ofirmev Injection - IVPB 1,000 mg Q6H PRN Administration FEVER Albuterol/Ipratropium 1 amp 10/23/18 16:00 10/23/18 20:00 Duoneb - NEB 1 amp RQID STEPHAN Administration Atorvastatin Calcium 10 mg 10/23/18 22:00 10/23/18 22:13 Lipitor - PO 10 mg HS STEPHAN Administration Carvedilol 6.25 mg/ Carvedilol 18.75 mg 10/23/18 10:00 10/23/18 22:13 12.5 mg PO 18.75 mg BID STEPHAN Administration Chlorhexidine Gluconate 1 applic 10/23/18 22:00 10/23/18 22:09 Hibiclens For Decolonization - TP 1 applic HS STEPHAN Administration Furosemide 40 mg 10/23/18 13:00 10/23/18 13:04 Lasix Injection - IVPUSH 40 mg DAILY STEPHAN Administration Azithromycin 500 mg in 250 mls @ 250 mls/hr 10/23/18 11:00 10/23/18 11:45 Zithromax 500mg Ivpb (Pre-Docked) IVPB 10/26/18 10:59 250 mls/hr DAILY STEPHAN Administration Lactated Ringer's 1,000 ml in 1,000 mls @ 42 mls/hr 10/23/18 20:15 10/23/18 20:15 Lactated Ringers Solution IV 10/24/18 08:14 42 mls/hr ASDIR STEPHAN Administration Cefepime HCl 1 gm/ Dextrose 100 mls @ 100 mls/hr 10/24/18 03:15 10/24/18 03: 34 IVPB 100 mls/hr Q8H-IV STEPHAN Administration Protocol Lisinopril 5 mg 10/23/18 10:00 10/23/18 09:56 Prinivil PO Not Given DAILY STEPHAN Mupirocin 1 applic 10/23/18 22:00 10/23/18 22:08 Bactroban Ointment (For Decolonization) - NS 10/28/18 21:59 1 applic BID STEPHAN Administration Rivaroxaban 20 mg 10/23/18 18:00 10/23/18 17:23 Xarelto - PO 20 mg DAILY@1800 STEPHAN Administration ASSESSMENT/PLAN: The pt is an 83M with a history of HTN, HLD, A fib (Xarelto) s/p ICD who presented to the hospital with nausea, vomiting, fever, stuffy nose, sore throat , being treated for suspected pneumonia. The patient was transferred to the ICU 2/2 hypotension after lasix. Neuro Pain -Tylenol PRN CV A-fib -Xarelto -Coreg BID HLD -Lipitor Hypotension -S/p 1L LR -IV Lasix D/C'ed -Resolved PULM PNA -ID consulted -Cont. Azithromycin and Cefepime GI Nutrition -Cardiac Diet OPAL -IV lasix D/C'ed -Resumed home Lasix 20mg PO daily -Howe D/C'ed today HEME DVT ppx -Xarelto ID PNA -Abx as above LTD -PIV Dispo: Patient no longer requires ICU level of care. Plan to transfer to Tele today Visit type - Emergency Visit Emergency Visit: Yes ED Registration Date: 10/22/18 Care time: The patient presented to the Emergency Department on the above date and was hospitalized for further evaluation of their emergent condition. - New Patient This patient is new to me today: Yes Date on this admission: 10/24/18 - Critical Care Critical Care patient: Yes Total Critical Care Time (in minutes): 35 Critical Care Statement: The care of this patient involved high complexity decision making to prevent further life threatening deterioration of the patient 's condition and/or to evaluate & treat vital organ system(s) failure or risk of failure.
[2018-10-24] MEDS: ALBUTEROL SO4 2.5/IPRATROPIUM 0.5 INH SOL 3 ML VIAL.NEB. NEB SCH (08:15)
[2018-10-24] MEDS ORDERED: CARVEDILOL 6.25 MG TABLET (FP) ONE ×2 (08:52→22:15)
[2018-10-24] MEDS ORDERED: CARVEDILOL 12.5 MG TABLET (FP) ONE ×2 (08:52→22:15)
[2018-10-24] MEDS: MUPIROCIN 2% TOPICAL OINTMENT FOR DECOLONIZATION NS SCH ×2 (09:04→23:06)
[2018-10-24] MEDS: CARVEDILOL PO SCH ×2 (09:04→22:38)
[2018-10-24] MEDS: AZITHROMYCIN IVPB 500 MG/250 ML BAG IVPB SCH (09:05)
[2018-10-24] MEDS ORDERED: FUROSEMIDE 20 MG TABLET (FP) PO SCH (10:00)
--- NOTE | 2018-10-24 10:36 | PN ---
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 non focal labs CBCD WBC 6.6 K/mm3 (4.0-10.0) 10/24/18 05:15 RBC 4.42 M/mm3 (4.00-5.60) 10/24/18 05:15 Hgb 12.8 GM/dL (11.7-16.9) 10/24/18 05:15 Hct 39.7 % (35.4-49) 10/24/18 05:15 MCV 89.7 fl (80-96) 10/24/18 05:15 MCHC 32.1 g/dl (32.0-35.9) 10/24/18 05:15 RDW 14.9 % (11.9-15.9) 10/24/18 05:15 Plt Count 113 K/MM3 (134-434) L 10/24/18 05:15 MPV 10.1 fl (7.5-11.1) 10/24/18 05:15 CMP Sodium 140 mmol/L (136-145) 10/24/18 05:15 Potassium 3.8 mmol/L (3.5-5.1) 10/24/18 05:15 Chloride 103 mmol/L (98-107) 10/24/18 05:15 Carbon Dioxide 27 mmol/L (21-32) 10/24/18 05:15 Anion Gap 10 MMOL/L (8-16) 10/24/18 05:15 BUN 28 mg/dL (7-18) H 10/24/18 05:15 Creatinine 1.7 mg/dL (0.55-1.3) H 10/24/18 05:15 Creat Clearance w eGFR 38.88 (>60) 10/24/18 05:15 Random Glucose 100 mg/dL (74-106) 10/24/18 05:15 Calcium 7.7 mg/dL (8.5-10.1) L 10/24/18 05:15 Total Bilirubin 0.5 mg/dL (0.2-1) 10/24/18 05:15 AST 86 U/L (15-37) H 10/24/18 05:15 ALT 76 U/L (13-61) H 10/24/18 05:15 Alkaline Phosphatase 71 U/L (45-117) 10/24/18 05:15 Total Protein 6.0 g/dl (6.4-8.2) L 10/24/18 05:15 Albumin 3.0 g/dl (3.4-5.0) L 10/24/18 05:15 CARDIAC ENZYMES Troponin I 0.03 ng/ml (0.00-0.06) 10/22/18 18:55 ap pneumonia continue double abx rapid afib and chf his bp has come up and he is feeling better will ask cardio for meds for heart rate control bp is stable cardiac and pulmonary f/u
--- NOTE | 2018-10-24 10:37 | PN ---
Teaching Attending Note Name of Resident: Poncho Gomez ATTENDING PHYSICIAN STATEMENT I saw and evaluated the patient. I reviewed the resident's note and discussed the case with the resident. I agree with the resident's findings and plan as documented. SUBJECTIVE: Patient seen and examined in the ICU. Awake and alert. Some congested cough. Hemodynamics have remained stable. AFib: 100 to 120, but asymptomatic. Intake & Output 10/21/18 10/22/18 10/23/18 10/24/18 23:59 23:59 23:59 23:59 Intake Total 950 150 520 Output Total 350 1100 Balance 950 -200 -580 Weight 152 lb 154 lb 8 oz Last Vital Signs Temp Pulse Resp BP Pulse Ox 98 F 116 H 22 H 102/84 99 10/24/18 10:00 10/24/18 10:00 10/24/18 10:00 10/24/18 10:00 10/24/18 08:36 Active Medications Acetaminophen (Tylenol -) 650 mg PO Q4H PRN PRN Reason: FEVER Last Admin: 10/24/18 09:05 Dose: 650 mg Acetaminophen (Ofirmev Injection -) 1,000 mg IVPB Q6H PRN PRN Reason: FEVER Last Admin: 10/23/18 14:50 Dose: 1,000 mg Albuterol/Ipratropium (Duoneb -) 1 amp NEB RQID [facility] Last Admin: 10/23/18 20:00 Dose: 1 amp Atorvastatin Calcium (Lipitor -) 10 mg PO [facility] Last Admin: 10/23/18 22:13 Dose: 10 mg Carvedilol 6.25 mg/ Carvedilol (12.5 mg) 18.75 mg PO BID [facility] Last Admin: 10/24/18 09:04 Dose: 18.75 mg Chlorhexidine Gluconate (Hibiclens For Decolonization -) 1 applic TP [facility] Last Admin: 10/23/18 22:09 Dose: 1 applic Furosemide (Lasix -) 20 mg PO DAILY [facility] Azithromycin (Zithromax 500mg Ivpb (Pre-Docked)) 500 mg in 250 mls @ 250 mls/ hr IVPB DAILY [facility] Stop: 10/26/18 10:59 Last Admin: 10/24/18 09:05 Dose: 250 mls/hr Cefepime HCl 1 gm/ Dextrose 100 mls @ 100 mls/hr IVPB Q8H-IV STEPHAN; Protocol Last Admin: 10/24/18 09:05 Dose: 100 mls/hr Lisinopril (Prinivil) 5 mg PO DAILY [facility] Last Admin: 10/23/18 09:56 Dose: Not Given Mupirocin (Bactroban Ointment (For Decolonization) -) 1 applic NS BID [facility] Stop: 10/28/18 21:59 Last Admin: 10/24/18 09:04 Dose: 1 applic Rivaroxaban (Xarelto -) 20 mg PO DAILY@1800 [facility] Last Admin: 10/23/18 17:23 Dose: 20 mg Constitutional: Yes: Well Nourished, No Distress Eyes: Yes: Conjunctiva Clear, EOM Intact HENT: Yes: Atraumatic Neck: Yes: Supple Cardiovascular: Yes: Pulse Irregular, S1, S2 Respiratory: Yes: Scattered Rhonchi, No Wheezes Gastrointestinal: Yes: Normal Bowel Sounds, Soft Edema: No Neurological: Yes: Alert, Oriented Labs: Laboratory Results - last 24 hr 10/24/18 10/24/18 05:15 05:15 WBC 6.6 RBC 4.42 Hgb 12.8 Hct 39.7 MCV 89.7 MCH 28.8 MCHC 32.1 RDW 14.9 Plt Count 113 L MPV 10.1 Absolute Neuts (auto) 5.0 Neutrophils % 75.8 Lymphocytes % 13.1 Monocytes % 10.9 H Eosinophils % 0.0 Basophils % 0.2 Nucleated RBC % 0 Sodium 140 Potassium 3.8 Chloride 103 Carbon Dioxide 27 Anion Gap 10 BUN 28 H Creatinine 1.7 H Creat Clearance w eGFR 38.88 Random Glucose 100 Calcium 7.7 L Phosphorus 4.4 Magnesium 1.8 Total Bilirubin 0.5 AST 86 H ALT 76 H Alkaline Phosphatase 71 Total Protein 6.0 L Albumin 3.0 L Assessment/Plan Suspected Viral Syndrome Do not suspect decompensated CHF AFib HTN HPL R/O RLL CAP Hypotension likely related to volume depletion compounded with administration of Lasix Noted ABX per ID: would consider de-escalation D/C IV Lasix O2 as needed Rate control PO as tolerated Follow cultures Cardiac Telemetry monitoring Dr Martínez
[2018-10-24] MEDS ORDERED: IPRATROPIUM BR 0.02% 0.5 MG/2.5 ML VIAL.NEB. NEB PRN (10:58)
--- NOTE | 2018-10-24 11:07 | PN ---
Progress Note, Physician History of Present Illness: Transferred to [facility] after transient hypotension at [facility] Remains in AF, asx Feels improved from breathing perspective - Current Medication List Current Medications: Active Medications Acetaminophen (Tylenol -) 650 mg PO Q4H PRN PRN Reason: FEVER Last Admin: 10/24/18 09:05 Dose: 650 mg Acetaminophen (Ofirmev Injection -) 1,000 mg IVPB Q6H PRN PRN Reason: FEVER Last Admin: 10/23/18 14:50 Dose: 1,000 mg Atorvastatin Calcium (Lipitor -) 10 mg PO HS [facility] Last Admin: 10/23/18 22:13 Dose: 10 mg Carvedilol 6.25 mg/ Carvedilol (12.5 mg) 18.75 mg PO BID [facility] Last Admin: 10/24/18 09:04 Dose: 18.75 mg Chlorhexidine Gluconate (Hibiclens For Decolonization -) 1 applic TP HS [facility] Last Admin: 10/23/18 22:09 Dose: 1 applic Furosemide (Lasix -) 20 mg PO DAILY [facility] Azithromycin (Zithromax 500mg Ivpb (Pre-Docked)) 500 mg in 250 mls @ 250 mls/ hr IVPB DAILY [facility] Stop: 10/26/18 10:59 Last Admin: 10/24/18 09:05 Dose: 250 mls/hr Cefepime HCl 1 gm/ Dextrose 100 mls @ 100 mls/hr IVPB Q8H-IV [facility]; Protocol Last Admin: 10/24/18 09:05 Dose: 100 mls/hr Ipratropium Aurora (Atrovent 0.02% Nebulizer -) 1 amp NEB Q8H PRN PRN Reason: ASTHMA Stop: 10/31/18 10:58 Lisinopril (Prinivil) 5 mg PO DAILY [facility] Last Admin: 10/23/18 09:56 Dose: Not Given Mupirocin (Bactroban Ointment (For Decolonization) -) 1 applic NS BID [facility] Stop: 10/28/18 21:59 Last Admin: 10/24/18 09:04 Dose: 1 applic Rivaroxaban (Xarelto -) 20 mg PO DAILY@1800 [facility] Last Admin: 10/23/18 17:23 Dose: 20 mg - Objective Vital Signs: Vital Signs Temperature 98 F 10/24/18 10:00 Pulse Rate 116 H 10/24/18 10:00 Respiratory Rate 22 H 10/24/18 10:00 Blood Pressure 102/84 10/24/18 10:00 O2 Sat by Pulse Oximetry (%) 95 10/24/18 10:54 Constitutional: Yes: No Distress Eyes: Yes: Conjunctiva Clear HENT: Yes: WNL Neck: Yes: WNL Cardiovascular: Yes: Tachycardia, Pulse Irregular Respiratory: Yes: Diminished, Rales, Rhonchi Gastrointestinal: Yes: Normal Bowel Sounds Musculoskeletal: Yes: WNL Extremities: Yes: WNL Edema: No Labs: CBC, BMP 10/24/18 05:15 10/24/18 05:15 INR, PTT INR 1.39 (0.82-1.09) H 10/22/18 19:07 Assessment/Plan 83 yo male with HTN, HPL, LV dysfunction, AF now with Acute decompensated HF in the setting of URI 1) HFrEF -Warm and wet physiology -Suspect triggered by ?URI with fever history -Hold IV lasix today -Continue Coreg -Hold ANURADHA in setting of lowish BP -Supportive care for ?URI 2) AFib -Likely realted to underlying decomensated state -Continue coreg at current dose -Would avoid further negative inotropes (BB, CCB) in settin gof presumed LV dysfunction -If need further rate control consider Dilt but rate should improve with URI theray -Continue Xarelto 3) Echo
--- NOTE | 2018-10-24 11:30 | CON.ID ---
Consult - History of Present Illness History of Present Illness: Asked to evaluate this 83 y.o. male with PMH of HTN, HLD, Atrial Fibrillation s/ p defibrillator, and possible CVA (as per family at bedside diagnosis at the time was unclear) presented to the ER with c/o nonproductive cough, shortness of breath, and mild throat discomfort. Also reported 2 episodes of n/v without abdominal pain/diarrhea which has since resolved. Pt reports that was admitted to the hospital 1 day prior for same symptoms but discharged from the ER. Pt denied any headache/chest pain/abd pain/dysuria/focal weakness. In the ER at [facility] he was noted to have a fever of 103F, mild shortness of breath but without leukocytosis/lactic acidosis. Transferred to ICU for low BP after Lasix administration. Currently patient states he feels better and is fully alert/responsive without respiratory distress, currently afebrile and O2 sat 96% on NC. All labs/imaging reports reviewed. 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: Yes: CVA (?) Cardio/Vascular: Yes: AFIB (LV dysfunction with ICD), HTN - Alcohol/Substance Use Hx Alcohol Use: Yes (OCCASIONAL) - Smoking History Smoking history: Never smoked Have you smoked in the past 12 months: No - Social History Usual Living Arrangement: With Spouse History of Recent Travel: No Home Medications - Allergies Allergies/Adverse Reactions: Allergies Allergy/AdvReac Type Severity Reaction Status Date / Time No Known Allergies Allergy Verified 10/22/18 18:36 - Home Medications Home Medications: Ambulatory Orders Carvedilol [Coreg -] 18.75 mg PO BID 10/22/18 Furosemide [Lasix] 20 mg PO DAILY 10/22/18 Lisinopril [Zestril] 5 mg PO DAILY 10/22/18 Rivaroxaban [Xarelto -] 20 mg PO DAILY 10/22/18 Simvastatin [Zocor -] 20 mg PO HS 10/22/18 Review of Systems - Review of Systems Constitutional: reports: Fever Eyes: reports: No Symptoms HENT: reports: Throat Pain Neck: reports: No Symptoms Cardiovascular: reports: No Symptoms Respiratory: reports: Cough, SOB Gastrointestinal: reports: No Symptoms Genitourinary: reports: No Symptoms Musculoskeletal: reports: No Symptoms Integumentary: reports: No Symptoms Neurological: reports: No Symptoms Endocrine: reports: No Symptoms Hematology/Lymphatic: reports: No Symptoms Psychiatric: reports: No Symptoms Physical Exam Vital Signs: Vital Signs Temperature 98 F 10/24/18 10:00 Pulse Rate 98 H 10/24/18 11:00 Respiratory Rate 20 10/24/18 11:00 Blood Pressure 87/69 L 10/24/18 11:00 O2 Sat by Pulse Oximetry (%) 95 10/24/18 10:54 Constitutional: Yes: No Distress, Calm Eyes: Yes: Conjunctiva Clear, EOM Intact HENT: Yes: WNL Neck: Yes: Supple, Trachea Midline Cardiovascular: Yes: Pulse Irregular Respiratory: Yes: Wheezes (diffuse) Gastrointestinal: Yes: Normal Bowel Sounds, Soft Renal/: Yes: WNL Musculoskeletal: Yes: WNL Extremities: Yes: WNL Integumentary: Yes: WNL Neurological: Yes: Alert, Oriented Labs: CBC, BMP 10/24/18 05:15 10/24/18 05:15 Laboratory Tests 10/22/18 10/22/18 10/22/18 18:55 19:07 19:07 WBC 10.0 RBC 5.09 Hgb 14.7 Hct 46.0 MCV 90.4 MCH 29.0 MCHC 32.0 RDW 14.2 Plt Count 174 MPV 9.9 Absolute Neuts (auto) 8.4 Neutrophils % 84.7 H Lymphocytes % 6.0 L Monocytes % 7.5 Eosinophils % 0.3 Basophils % 1.5 Nucleated RBC % PT with INR 15.5 H INR 1.39 H PTT (Actin FS) 27.5 VBG pH POC VBG pCO2 POC VBG pO2 Mixed VBG HCO3 Sodium Potassium Chloride Carbon Dioxide Anion Gap BUN Creatinine Creat Clearance w eGFR Random Glucose Lactic Acid Calcium Phosphorus Magnesium Total Bilirubin AST ALT Alkaline Phosphatase Troponin I 0.03 B-Natriuretic Peptide Total Protein Albumin Urine Color Urine Appearance Urine pH Ur Specific [place] Urine Protein Urine Glucose (UA) Urine Ketones Urine Blood Urine Nitrite Urine Bilirubin Urine Urobilinogen Ur Leukocyte Esterase Influenza A (Rapid) Influenza B (Rapid) 10/22/18 10/22/18 10/22/18 19:07 19:07 19:07 WBC RBC Hgb Hct MCV MCH MCHC RDW Plt Count MPV Absolute Neuts (auto) Neutrophils % Lymphocytes % Monocytes % Eosinophils % Basophils % Nucleated RBC % PT with INR INR PTT (Actin FS) VBG pH 7.39 POC VBG pCO2 40.4 POC VBG pO2 54.9 H Mixed VBG HCO3 23.8 Sodium 133 L Potassium 4.3 Chloride 100 Carbon Dioxide 22 Anion Gap 11 BUN 23 H Creatinine 1.2 Creat Clearance w eGFR 58.11 Random Glucose 204 H Lactic Acid Calcium 8.6 Phosphorus Magnesium Total Bilirubin 1.2 H AST 32 ALT 28 Alkaline Phosphatase 51 Troponin I B-Natriuretic Peptide Total Protein 7.3 Albumin 3.9 Urine Color Urine Appearance Urine pH Ur Specific [place] Urine Protein Urine Glucose (UA) Urine Ketones Urine Blood Urine Nitrite Urine Bilirubin Urine Urobilinogen Ur Leukocyte Esterase Influenza A (Rapid) Negative Influenza B (Rapid) Negative 10/22/18 10/22/18 10/22/18 19:07 20:20 23:00 WBC RBC Hgb Hct MCV MCH MCHC RDW Plt Count MPV Absolute Neuts (auto) Neutrophils % Lymphocytes % Monocytes % Eosinophils % Basophils % Nucleated RBC % PT with INR INR PTT (Actin FS) VBG pH POC VBG pCO2 POC VBG pO2 Mixed VBG HCO3 Sodium Potassium Chloride Carbon Dioxide Anion Gap BUN Creatinine Creat Clearance w eGFR Random Glucose Lactic Acid 1.8 Calcium Phosphorus Magnesium Total Bilirubin AST ALT Alkaline Phosphatase Troponin I B-Natriuretic Peptide 6681.5 H Total Protein Albumin Urine Color Yellow Urine Appearance Clear Urine pH 5.0 Ur Specific [place] 1.023 Urine Protein Negative Urine Glucose (UA) Negative Urine Ketones Negative Urine Blood Negative Urine Nitrite Negative Urine Bilirubin Negative Urine Urobilinogen Negative Ur Leukocyte Esterase Negative Influenza A (Rapid) Influenza B (Rapid) 10/23/18 10/23/18 10/23/18 07:22 07:22 07:22 WBC 8.2 RBC 4.57 Hgb 13.5 Hct 41.2 MCV 90.1 MCH 29.6 MCHC 32.8 RDW 14.1 Plt Count 146 MPV 10.5 Absolute Neuts (auto) Neutrophils % Lymphocytes % Monocytes % Eosinophils % Basophils % Nucleated RBC % PT with INR INR PTT (Actin FS) VBG pH POC VBG pCO2 POC VBG pO2 Mixed VBG HCO3 Sodium 135 L Potassium 4.1 Chloride 103 Carbon Dioxide 23 Anion Gap 9 BUN 22 H Creatinine 1.3 Creat Clearance w eGFR 52.98 Random Glucose 156 H D Lactic Acid Calcium 7.9 L Phosphorus Magnesium 1.8 Total Bilirubin 0.7 AST 56 H D ALT 40 D Alkaline Phosphatase 50 Troponin I B-Natriuretic Peptide 87543.7 H Total Protein 6.2 L Albumin 3.2 L Urine Color Urine Appearance Urine pH Ur Specific [place] Urine Protein Urine Glucose (UA) Urine Ketones Urine Blood Urine Nitrite Urine Bilirubin Urine Urobilinogen Ur Leukocyte Esterase Influenza A (Rapid) Influenza B (Rapid) 10/24/18 10/24/18 05:15 05:15 WBC 6.6 RBC 4.42 Hgb 12.8 Hct 39.7 MCV 89.7 MCH 28.8 MCHC 32.1 RDW 14.9 Plt Count 113 L MPV 10.1 Absolute Neuts (auto) 5.0 Neutrophils % 75.8 Lymphocytes % 13.1 Monocytes % 10.9 H Eosinophils % 0.0 Basophils % 0.2 Nucleated RBC % 0 PT with INR INR PTT (Actin FS) VBG pH POC VBG pCO2 POC VBG pO2 Mixed VBG HCO3 Sodium 140 Potassium 3.8 Chloride 103 Carbon Dioxide 27 Anion Gap 10 BUN 28 H Creatinine 1.7 H Creat Clearance w eGFR 38.88 Random Glucose 100 Lactic Acid Calcium 7.7 L Phosphorus 4.4 Magnesium 1.8 Total Bilirubin 0.5 AST 86 H ALT 76 H Alkaline Phosphatase 71 Troponin I B-Natriuretic Peptide Total Protein 6.0 L Albumin 3.0 L Urine Color Urine Appearance Urine pH Ur Specific [place] Urine Protein Urine Glucose (UA) Urine Ketones Urine Blood Urine Nitrite Urine Bilirubin Urine Urobilinogen Ur Leukocyte Esterase Influenza A (Rapid) Influenza B (Rapid) Influenza A/B rapid - negative Blood cultures negative 24hrs Imaging - Results Chest X-ray: Report Reviewed Cat Scan: Report Reviewed Problem List - Problems (1) Atrial fibrillation with RVR Code(s): I48.91 - UNSPECIFIED ATRIAL FIBRILLATION Assessment/Plan 83 y.o. male with PMH of HTN, HLD, Atrial Fibrillation s/p defibrillator presenting to [facility] ER with dry cough, fever, mild throat discomfort whose has had similar symptoms. Was transferred to ICU for hypotension after Lasix administration currently afebrile,alert, without respiratory distress. CT of the chest with mild RLL atelectasis without acute infiltrates, pt without leukocytosis, lactic acidosis. All labs/imaging results noted, case d /w family. Suspect URI/ Viral Syndrome AFIB s/p defibrillator OPAL/volume depletion HTN HLD -- at this time will hold antibiotics and monitor closely -- if cough/fever persists suggest repeat imaging to r/o developing PNA -- Blood cultures negative thus far, lactic acid normal no acute respiratory distress at this time rest of care per ICU cc time: 40 min
[2018-10-24] MEDS ORDERED: ACETAMINOPHEN 325 MG TABLET (FP) PO PRN (15:50)
[2018-10-24] MEDS ORDERED: ACETAMINOPHEN 1000 MG/100 ML VIAL (NON FORMULARY) IVPB PRN (15:50)
[2018-10-24] MEDS ORDERED: PT OWN MED DRAWER 7, Y5N ONE ×3 (17:32→19:00)
[2018-10-24] MEDS ORDERED: RIVAROXABAN 10 MG TABLET PO SCH (18:00)
[2018-10-24] MEDS: ATORVASTATIN CA 10 MG TABLET (FP) PO SCH (22:37)
[2018-10-24] MEDS: CHLORHEXIDINE GLUCONATE 4% CLEANSER FOR DECOLONIZATION TP SCH (23:07)
--- NOTE | 2018-10-25 08:40 | PN ---
Physical Exam: SUBJECTIVE: Patient seen and examined. Reports pain improved. Tolerating diet. OBJECTIVE: Vital Signs Period Temp Pulse Resp BP Sys/Dangelo Pulse Ox Last 24 Hr 98 F-98.5 F 88-121 16-22 81-107/47-84 95-99 GENERAL: Awake, alert, and fully oriented, in no acute distress HEAD: No signs of trauma, normocephalic, atraumatic EYES: PERRLA, EOMI, sclera anicteric, conjunctiva clear ENT: Hearing grossly normal, nares patent, oropharynx clear without exudates. Moist mucosa LUNGS: No distress, speaks full sentences, mild wheeze b/l HEART: Regular rate w/ irregularly irregular rhythm, no murmurs appreciated, peripheral pulses normal and equal bilaterally ABDOMEN: Soft, nontender, normoactive bowel sounds. No guarding, no rebound EXTREMITIES : Normal inspection, Normal range of motion, no edema. No clubbing or cyanosis NEUROLOGICAL: Cranial nerves II through XII grossly intact. Normal speech, no focal sensorimotor deficits SKIN: Warm, Dry ASSESSMENT/PLAN: The pt is an 83M with a history of HTN, HLD, A fib (Xarelto) s/p ICD who presented to the hospital with nausea, vomiting, fever, stuffy nose, sore throat , being treated for suspected pneumonia. The patient was transferred to the ICU 2/2 hypotension after lasix. Neuro Pain -Tylenol PRN CV A-fib -Xarelto -Coreg BID HLD -Lipitor Hypotension -S/p 1L LR -IV Lasix D/C'ed -Resolved PULM PNA -ID consulted -Cont. Azithromycin and Cefepime GI Nutrition -Cardiac Diet OPAL -IV lasix D/C'ed -Resumed home Lasix 20mg PO daily -Howe D/C'ed today HEME DVT ppx -Xarelto ID PNA -Abx as above LTD -PIV Dispo: Patient no longer requires ICU level of care. Plan to transfer to Tele today Visit type - Emergency Visit Emergency Visit: Yes ED Registration Date: 10/22/18 Care time: The patient presented to the Emergency Department on the above date and was hospitalized for further evaluation of their emergent condition. - New Patient This patient is new to me today: No - Critical Care Critical Care patient: Yes Total Critical Care Time (in minutes): 35 Critical Care Statement: The care of this patient involved high complexity decision making to prevent further life threatening deterioration of the patient 's condition and/or to evaluate & treat vital organ system(s) failure or risk of failure.
--- NOTE | 2018-10-25 09:04 | PN ---
Progress Note (short form) - Note Progress Note: Feeling better, less cough, no fever Vital Signs Period Temp Pulse Resp BP Sys/Dangelo Pulse Ox Last 24 Hr 98 F-98.5 F 88-121 16-22 81-107/47-84 95-98 S1S2 irreg.irreg. tachy in 110s 120s lungs scattered rhonchi and wheezing bilaterally abd soft NT +BS no edema aaox3 cough mostly dry dyspnea better no pain no chills voiding CBC, BMP 10/24/18 05:15 10/24/18 05:15 IMP febrile respiratory illness, likely viral cultures are negative off of abx supportive care prn o2 rapid afib with hypotension after diuresis coreg as tolerated by BP hemodinamically stable to transfer to telemetry nonischemic cardiomyopathy EF 35%~ AICD physical therapy
[2018-10-25] MEDS ORDERED: guaiFENesin 200 MG/10 ML 10 ML UNIT-DOSE CUPS PO PRN (09:05)
[2018-10-25 09:55] LABS: ANION GAP 8 MMOL/L (8-16); BLOOD UREA NITROGEN 29 mg/dL (7-18); CALCIUM 7.7 mg/dL (8.5-10.1); CHLORIDE 106 mmol/L (98-107); CO2 28 mmol/L (21-32); CREATININE 1.4 mg/dL (0.55-1.3); GLUCOSE,RANDOM 121 mg/dL (74-106); POTASSIUM 3.9 mmol/L (3.5-5.1); SODIUM 141 mmol/L (136-145)
[2018-10-25] MEDS ORDERED: CARVEDILOL 6.25 MG TABLET (FP) ONE ×2 (10:28→20:56)
[2018-10-25] MEDS ORDERED: CARVEDILOL 12.5 MG TABLET (FP) ONE ×2 (10:28→20:56)
[2018-10-25] MEDS: CARVEDILOL PO SCH ×2 (10:32→21:04)
[2018-10-25] MEDS: FUROSEMIDE 20 MG TABLET (FP) PO SCH (10:32)
[2018-10-25] MEDS: MUPIROCIN 2% TOPICAL OINTMENT FOR DECOLONIZATION NS SCH ×2 (10:33→21:04)
--- NOTE | 2018-10-25 11:04 | PN ---
Progress Note, Physician Chief Complaint: cough, sob History of Present Illness: coughing. cp at times ONLY WHEN COUGHS. a little sob. no leg swelling, palp.s no cigs - Current Medication List Current Medications: Active Medications Acetaminophen (Tylenol -) 650 mg PO Q4H PRN PRN Reason: FEVER Acetaminophen (Ofirmev Injection -) 1,000 mg IVPB Q6H PRN PRN Reason: FEVER; IF PO NT WORK Atorvastatin Calcium (Lipitor -) 10 mg PO [facility] Last Admin: 10/24/18 22:37 Dose: 10 mg Carvedilol 6.25 mg/ Carvedilol (12.5 mg) 18.75 mg PO BID [facility] Last Admin: 10/25/18 10:32 Dose: 18.75 mg Chlorhexidine Gluconate (Hibiclens For Decolonization -) 1 applic TP [facility] Last Admin: 10/24/18 23:07 Dose: 1 applic Furosemide (Lasix -) 20 mg PO DAILY [facility] Last Admin: 10/25/18 10:32 Dose: 20 mg Guaifenesin (Robitussin -) 10 ml PO Q6H PRN PRN Reason: COUGH Ipratropium [place] (Atrovent 0.02% Nebulizer -) 1 amp NEB Q8H PRN PRN Reason: ASTHMA Stop: 10/31/18 10:58 Mupirocin (Bactroban Ointment (For Decolonization) -) 1 applic NS BID [facility] Stop: 10/28/18 21:59 Last Admin: 10/25/18 10:33 Dose: 1 applic Rivaroxaban (Xarelto -) 20 mg PO DAILY@1800 [facility] - Objective Vital Signs: Vital Signs Temperature 98.3 F 10/25/18 10:00 Pulse Rate 118 H 10/25/18 10:00 Respiratory Rate 20 10/25/18 10:00 Blood Pressure 106/74 10/25/18 10:00 O2 Sat by Pulse Oximetry (%) 98 10/25/18 06:00 Constitutional: Yes: Well Nourished, No Distress, Calm Cardiovascular: Yes: Pulse Irregular, S1, S2. No: JVD, Gallop, Murmur Respiratory: Yes: Regular, Rhonchi (L upper), Wheezes (L lung) Extremities: No: Cold Edema: No Neurological: Yes: Alert, Oriented Psychiatric: No: Agitated Labs: CBC, BMP 10/24/18 05:15 10/25/18 09:19 INR, PTT INR 1.39 (0.82-1.09) H 10/22/18 19:07 Assessment/Plan CXR 10/24: mild chf changes increased slightly vs prior 83 yo male with HTN, HPL, LV dysfunction, AF now with Acute decompensated HF HFrEF -known low EF, s/p ICD (previously saw dr woods, cardio) -Warm and wet physiology -Suspect triggered by ?URI with fever history -gave Lasix 40mg IV x1--BP dropped so lasix held. BNP 6K-->14K (10/23) -given he developed prerenal OPAL and hypotension with lasix 40 iv only one dose , he is likely not overloaded. continue holding lasix, but would also hold IVF. -observe clinically -Continue Coreg -Hold ANURADHA in setting of lowish BP OPAL: -prerenal, sec to diuresis likely -improving. holding lasix. -trend labs AFib -Likely related to underlying decomensated state -Continue coreg at current dose -If need further rate control consider Dilt but rate should normalize with diuresis -Continue Xarelto (GFR currently dipped <50, but trending back towards baseline. if GFR ends up <50, will change xarelto to 15 qd) cough, wheeze, sob: -likely URI/PNA, ? bronchospastic component -doubt predominantly chf clinically (? cxr findings chronic)--lasix as above -per hospitalist, crit care
--- NOTE | 2018-10-25 13:00 | PN ---
Teaching Attending Note Name of Resident: Poncho Gomez ATTENDING PHYSICIAN STATEMENT I saw and evaluated the patient. I reviewed the resident's note and discussed the case with the resident. I agree with the resident's findings and plan as documented. SUBJECTIVE: Pt seen and examined in the ICU. Denies shortness of breath or chest pain. + nonproductive cough. OBJECTIVE: Vital Signs Period Temp Pulse Resp BP Sys/Dangelo Pulse Ox Last 24 Hr 98 F-98.5 F 88-122 16-22 81-107/47-78 98-100 Intake & Output 10/22/18 10/23/18 10/24/18 10/25/18 23:59 23:59 23:59 23:59 Intake Total 601 762 0368 456 Output Total 350 1700 600 Balance 950 -200 1178 -144 Weight 68.946 kg 70.08 kg 70.216 kg Gen: NAD at rest Heart: RRR Lung: scattered wheeze Abd: soft, nontender Ext: no edema CBC, BMP 10/24/18 05:15 10/25/18 09:19 Active Medications Acetaminophen (Tylenol -) 650 mg PO Q4H PRN PRN Reason: FEVER Acetaminophen (Ofirmev Injection -) 1,000 mg IVPB Q6H PRN PRN Reason: FEVER; IF PO NT WORK Atorvastatin Calcium (Lipitor -) 10 mg PO [facility] Last Admin: 10/24/18 22:37 Dose: 10 mg Carvedilol 6.25 mg/ Carvedilol (12.5 mg) 18.75 mg PO BID [facility] Last Admin: 10/25/18 10:32 Dose: 18.75 mg Chlorhexidine Gluconate (Hibiclens For Decolonization -) 1 applic TP [facility] Last Admin: 10/24/18 23:07 Dose: 1 applic Furosemide (Lasix -) 20 mg PO DAILY [facility] Last Admin: 10/25/18 10:32 Dose: 20 mg Guaifenesin (Robitussin -) 10 ml PO Q6H PRN PRN Reason: COUGH Ipratropium [place] (Atrovent 0.02% Nebulizer -) 1 amp NEB Q8H [facility] Stop: 10/31/18 10:58 Mupirocin (Bactroban Ointment (For Decolonization) -) 1 applic NS BID [facility] Stop: 10/28/18 21:59 Last Admin: 10/25/18 10:33 Dose: 1 applic Rivaroxaban (Xarelto -) 20 mg PO DAILY@1800 [facility] ASSESSMENT AND PLAN: URI Acute Bronchospasm LV Systolic Dysfunction Acute Kidney Injury Atrial Fibrillation - inhaled bronchodilators - O2 to keep Spo2 >90% - rate controlled - continue anticoagulation - monitor urine output, creatinine - can monitor on floor
[2018-10-25] MEDS: IPRATROPIUM BR 0.02% 0.5 MG/2.5 ML VIAL.NEB. NEB SCH ×2 (14:41→21:10)
[2018-10-25 15:43] VITALS: BMI 28.1
--- NOTE | 2018-10-25 15:46 | PN ---
Progress Note, Physician History of Present Illness: patient seen and examined in the icu daughter in the room history noted currently feeling much better still with cough with sputum production - Current Medication List Current Medications: Active Medications Acetaminophen (Tylenol -) 650 mg PO Q4H PRN PRN Reason: FEVER Acetaminophen (Ofirmev Injection -) 1,000 mg IVPB Q6H PRN PRN Reason: FEVER; IF PO NT WORK Atorvastatin Calcium (Lipitor -) 10 mg PO [facility] Last Admin: 10/24/18 22:37 Dose: 10 mg Carvedilol 6.25 mg/ Carvedilol (12.5 mg) 18.75 mg PO BID [facility] Last Admin: 10/25/18 10:32 Dose: 18.75 mg Chlorhexidine Gluconate (Hibiclens For Decolonization -) 1 applic TP [facility] Last Admin: 10/24/18 23:07 Dose: 1 applic Furosemide (Lasix -) 20 mg PO DAILY [facility] Last Admin: 10/25/18 10:32 Dose: 20 mg Guaifenesin (Robitussin -) 10 ml PO Q6H PRN PRN Reason: COUGH Last Admin: 10/25/18 14:22 Dose: 10 ml Ipratropium [place] (Atrovent 0.02% Nebulizer -) 1 amp NEB RTID [facility] Last Admin: 10/25/18 14:41 Dose: 1 amp Mupirocin (Bactroban Ointment (For Decolonization) -) 1 applic NS BID [facility] Stop: 10/28/18 21:59 Last Admin: 10/25/18 10:33 Dose: 1 applic Rivaroxaban (Xarelto -) 20 mg PO DAILY@1800 [facility] - Objective Vital Signs: Vital Signs Temperature 98.3 F 10/25/18 10:00 Pulse Rate 108 H 10/25/18 14:00 Respiratory Rate 28 H 10/25/18 14:00 Blood Pressure 98/85 10/25/18 14:00 O2 Sat by Pulse Oximetry (%) 100 10/25/18 09:00 Constitutional: Yes: No Distress, Calm Cardiovascular: Yes: Pulse Irregular, S1, S2 Respiratory: Yes: Regular, Poor Air Entry Gastrointestinal: Yes: Normal Bowel Sounds, Soft Musculoskeletal: Yes: WNL Extremities: Yes: WNL Neurological: Yes: Alert, Oriented Psychiatric: Yes: Alert, Oriented Labs: CBC, BMP 10/24/18 05:15 10/25/18 09:19 INR, PTT INR 1.39 (0.82-1.09) H 10/22/18 19:07 - ....Imaging Chest X-ray: Report Reviewed, Image Reviewed Assessment/Plan Imaging - Results Chest X-ray: Report Reviewed Cat Scan: Report Reviewed Problem List - Problems (1) Atrial fibrillation with RVR Code(s): I48.91 - UNSPECIFIED ATRIAL FIBRILLATION Assessment/Plan 83 y.o. male with PMH of HTN, HLD, Atrial Fibrillation s/p defibrillator presenting to [facility] ER with dry cough, fever, mild throat discomfort whose has had similar symptoms. Was transferred to ICU for hypotension after Lasix administration currently afebrile,alert, without respiratory distress. CT of the chest with mild RLL atelectasis without acute infiltrates, pt without leukocytosis, lactic acidosis. Suspect URI/ Viral Syndrome AFIB s/p defibrillator OPAL/volume depletion HTN HLD continue care as per icu patient stable incentive carmita no abx at this time rest as per the team cc 38 min d/w the daughter sputum sample
[2018-10-25] MEDS ORDERED: RIVAROXABAN 20 MG TABLET PO SCH (18:00)
[2018-10-25] MEDS: CHLORHEXIDINE GLUCONATE 4% CLEANSER FOR DECOLONIZATION TP SCH (21:05)
[2018-10-25] MEDS: ATORVASTATIN CA 10 MG TABLET (FP) PO SCH (21:05)
[2018-10-26 05:50] LABS: BASO % 0.5 % (0-2.0); EOS % 1.5 % (0-4.5); HEMATOCRIT 40.2 % (35.4-49); HEMOGLOBIN 12.7 GM/dL (11.7-16.9); LYMPH % 33.1 % (8-40); MCH 28.2 pg (25.7-33.7); MCHC 31.5 g/dl (32.0-35.9); MEAN CELL VOLUME 89.3 fl (80-96); MEAN PLT VOLUME 9.8 fl (7.5-11.1); MONO % 16.4 % (3.8-10.2); NEUT % 48.5 % (42.8-82.8); PLATELET COUNT 124 K/MM3 (134-434); RDW 14.7 % (11.9-15.9); WHITE BLOOD COUNT 4.6 K/mm3 (4.0-10.0)
[2018-10-26 07:23] LABS: ALBUMIN 2.8 g/dl (3.4-5.0); ALK PHOS 136 U/L (45-117); ANION GAP 7 MMOL/L (8-16); BILIRUBIN,TOTAL 0.7 mg/dL (0.2-1); BLOOD UREA NITROGEN 30 mg/dL (7-18); CALCIUM 7.9 mg/dL (8.5-10.1); CHLORIDE 105 mmol/L (98-107); CO2 30 mmol/L (21-32); CREATININE 1.3 mg/dL (0.55-1.3); GLUCOSE,RANDOM 97 mg/dL (74-106); SGOT/AST 108 U/L (15-37); SGPT/ALT 104 U/L (13-61); SODIUM 141 mmol/L (136-145); TOT PROT 5.9 g/dl (6.4-8.2)
[2018-10-26] MEDS: IPRATROPIUM BR 0.02% 0.5 MG/2.5 ML VIAL.NEB. NEB SCH ×2 (07:45→14:45)
--- NOTE | 2018-10-26 08:00 | PN ---
Physical Exam: SUBJECTIVE: Patient seen and examined. Sd pain, SOB, chest pain, palpitations , N/V/C/D. OBJECTIVE: Vital Signs Period Temp Pulse Resp BP Sys/Dangelo Pulse Ox Last 24 Hr 98.2 F-98.9 F 100-122 20-28 96-109/48-94 100-100 GENERAL: Awake, alert, and fully oriented, in no acute distress HEAD: No signs of trauma, normocephalic, atraumatic EYES: PERRLA, EOMI, sclera anicteric, conjunctiva clear ENT: Hearing grossly normal, nares patent, oropharynx clear without exudates. Moist mucosa LUNGS: No distress, speaks full sentences, mild wheeze b/l HEART: Regular rate w/ irregularly irregular rhythm, no murmurs appreciated, peripheral pulses normal and equal bilaterally ABDOMEN: Soft, nontender, normoactive bowel sounds. No guarding, no rebound EXTREMITIES : Normal inspection, Normal range of motion, no edema. No clubbing or cyanosis NEUROLOGICAL: Cranial nerves II through XII grossly intact. Normal speech, no focal sensorimotor deficits SKIN: Warm, Dry ASSESSMENT/PLAN: The pt is an 83M with a history of HTN, HLD, A fib (Xarelto) s/p ICD who presented to the hospital with nausea, vomiting, fever, stuffy nose, sore throat , being treated for suspected pneumonia. The patient was transferred to the ICU 2/2 hypotension after lasix. Neuro Pain -Tylenol PRN CV A-fib -Xarelto -Coreg BID HLD -Lipitor Hypotension -Resolved PULM PNA -Abx course completed COPD -Ipratropium -Guaifenesin GI Nutrition -Cardiac Diet OPAL -Improving -Resumed home Lasix 20mg PO daily HEME DVT ppx -Xarelto ID PNA -Abx completed LTD -PIV Dispo: Patient no longer requires ICU level of care. Plan to transfer to Tele today Visit type - Emergency Visit Emergency Visit: Yes ED Registration Date: 10/22/18 Care time: The patient presented to the Emergency Department on the above date and was hospitalized for further evaluation of their emergent condition. - New Patient This patient is new to me today: No - Critical Care Critical Care patient: Yes Total Critical Care Time (in minutes): 35 Critical Care Statement: The care of this patient involved high complexity decision making to prevent further life threatening deterioration of the patient 's condition and/or to evaluate & treat vital organ system(s) failure or risk of failure.
--- NOTE | 2018-10-26 09:12 | PN ---
Progress Note (short form) - Note Progress Note: Offers no complaints CBC, BMP 10/26/18 05:15 10/26/18 05:15 Vital Signs Period Temp Pulse Resp BP Sys/Dangelo Pulse Ox Last 24 Hr 98.2 F-98.9 F 100-118 20-28 98-109/48-94 100-100 S1S2 irreg.irreg. tachy in 110s 120s lungs scattered rhonchi better abd soft NT +BS no edema aaox3 cough mostly dry no dyspnea no pain no chills voiding IMP febrile respiratory illness, likely viral cultures are negative off of abx supportive care prn o2 rapid afib with hypotension after diuresis coreg as tolerated by BP hemodinamically stable to transfer to telemetry nonischemic cardiomyopathy EF 35%~ AICD physical therapy continue present care dc planning if ok with cardiology VNs upon DC
[2018-10-26] MEDS ORDERED: CARVEDILOL PO SCH (09:13)
[2018-10-26] MEDS ORDERED: CARVEDILOL 6.25 MG TABLET (FP) ONE (10:28)
[2018-10-26] MEDS ORDERED: CARVEDILOL 12.5 MG TABLET (FP) ONE (10:28)
[2018-10-26] MEDS: FUROSEMIDE 20 MG TABLET (FP) PO SCH (10:30)
--- NOTE | 2018-10-26 10:48 | PN ---
Progress Note (short form) - Note Progress Note: Progress Note, Physician Chief Complaint: cough, sob History of Present Illness: feels better today. wants to go home. no cp, sob, palps, dizziness, lightheadedness no cigs Current Medications Acetaminophen (Tylenol -) 650 mg PO Q4H PRN PRN Reason: FEVER Acetaminophen (Ofirmev Injection -) 1,000 mg IVPB Q6H PRN PRN Reason: FEVER; IF PO NT WORK Atorvastatin Calcium (Lipitor -) 10 mg PO [facility] Last Admin: 10/25/18 21:05 Dose: 10 mg Carvedilol 6.25 mg/ Carvedilol (12.5 mg) 18.75 mg PO BID [facility] Last Admin: 10/26/18 10:30 Dose: 18.75 mg Chlorhexidine Gluconate (Hibiclens For Decolonization -) 1 applic TP [facility] Last Admin: 10/25/18 21:05 Dose: 1 applic Furosemide (Lasix -) 20 mg PO DAILY [facility] Last Admin: 10/26/18 10:30 Dose: 20 mg Guaifenesin (Robitussin -) 10 ml PO Q6H PRN PRN Reason: COUGH Last Admin: 10/25/18 14:22 Dose: 10 ml Ipratropium [place] (Atrovent 0.02% Nebulizer -) 1 amp NEB RTID [facility] Last Admin: 10/26/18 07:45 Dose: 1 amp Mupirocin (Bactroban Ointment (For Decolonization) -) 1 applic NS BID [facility] Stop: 10/28/18 21:59 Last Admin: 10/25/18 21:04 Dose: 1 applic Rivaroxaban (Xarelto -) 20 mg PO DAILY@1800 [facility] Last Admin: 10/25/18 17:51 Dose: 20 mg - Objective Vital Signs Period Temp Pulse Resp BP Sys/Dangelo Pulse Ox Last 24 Hr 97.3 F-98.9 F 100-118 20-28 98-109/48-94 100-100 Constitutional: Yes: Well Nourished, No Distress, Calm Cardiovascular: Yes: Pulse Irregular, S1, S2. No: JVD, Gallop, Murmur Respiratory: Yes: Regular, scattered exp wheezes Extremities: No: Cold Edema: No Neurological: Yes: Alert, Oriented Psychiatric: No: Agitated Assessment/Plan CXR 1/6: mild chf changes increased slightly vs prior echo 10/2018 LV nl size, severe global hypok of LV EF 25-30%, ppm lead in RV, RV systolic dysfunctino, LA/RA mod dilated, mod MR, mod TR, PASP at least 32 mmHg, mod ao sclerosis without stenosis tele: afib, rate 110s, occ 150s 83 yo male with HTN, HPL, LV dysfunction, AF now with Acute decompensated HF HFrEF -known low EF, s/p ICD (previously saw dr woods, cardio) - EF 25-30% on echo here -Warm and wet physiology -Suspect triggered by ?URI with fever history -gave Lasix 40mg IV x1--BP dropped so lasix held. BNP 6K-->14K (10/23) -given he developed prerenal OPAL and hypotension with lasix 40 iv only one dose , he is likely not overloaded. continue holding IV lasix, but would also hold IVF. - on home dose PO lasix now, stable, continue, appears euvolemic -observe clinically -Continue Coreg -cont holding ACEI as BP remains low, may be restarted as outpatient as BP improves OPAL: -prerenal, sec to diuresis likely -improving. holding IV lasix. -trend labs AFib -Likely related to underlying decomensated state, improving -Continue coreg at current dose, rate generally controlled with occasional RVR if coughing -Continue Xarelto (GFR currently dipped <50, but trending back towards baseline. if GFR ends up <50, will change xarelto to 15 qd) cough, wheeze, sob: -likely URI/PNA, ? bronchospastic component -doubt predominantly chf clinically (? cxr findings chronic)- on home lasix, appears euvolemic -per hospitalist, crit care
--- NOTE | 2018-10-26 12:04 | PN ---
Teaching Attending Note Name of Resident: Poncho Gomez ATTENDING PHYSICIAN STATEMENT I saw and evaluated the patient. I reviewed the resident's note and discussed the case with the resident. I agree with the resident's findings and plan as documented. SUBJECTIVE: Pt seen and examined in the ICU. Denies shortness of breath or chest pain but with nasal congestion. Heart rates variable. OBJECTIVE: Vital Signs Period Temp Pulse Resp BP Sys/Dangelo Pulse Ox Last 24 Hr 97.3 F-98.9 F 100-118 20-28 98-109/48-94 100-100 Intake & Output 10/23/18 10/24/18 10/25/18 10/26/18 23:59 23:59 23:59 23:59 Intake Total 150 2878 556 50 Output Total 350 1700 600 Balance -200 1178 -44 50 Weight 70.08 kg 69.853 kg 69.853 kg Gen: NAD in chair Heart: irregular, tachycardic Lung: decreased breath sounds at the bases Abd: soft, nontender Ext: no edema CBC, BMP 10/26/18 05:15 10/26/18 05:15 Active Medications Acetaminophen (Tylenol -) 650 mg PO Q4H PRN PRN Reason: FEVER Acetaminophen (Ofirmev Injection -) 1,000 mg IVPB Q6H PRN PRN Reason: FEVER; IF PO NT WORK Atorvastatin Calcium (Lipitor -) 10 mg PO HS [facility] Last Admin: 10/25/18 21:05 Dose: 10 mg Carvedilol 6.25 mg/ Carvedilol (12.5 mg) 18.75 mg PO BID [facility] Last Admin: 10/26/18 10:30 Dose: 18.75 mg Chlorhexidine Gluconate (Hibiclens For Decolonization -) 1 applic TP [facility] Last Admin: 10/25/18 21:05 Dose: 1 applic Furosemide (Lasix -) 20 mg PO DAILY [facility] Last Admin: 10/26/18 10:30 Dose: 20 mg Guaifenesin (Robitussin -) 10 ml PO Q6H PRN PRN Reason: COUGH Last Admin: 10/25/18 14:22 Dose: 10 ml Ipratropium [place] (Atrovent 0.02% Nebulizer -) 1 amp NEB RTID [facility] Last Admin: 10/26/18 07:45 Dose: 1 amp Mupirocin (Bactroban Ointment (For Decolonization) -) 1 applic NS BID [facility] Stop: 10/28/18 21:59 Last Admin: 10/25/18 21:04 Dose: 1 applic Rivaroxaban (Xarelto -) 20 mg PO DAILY@1800 [facility] Last Admin: 10/25/18 17:51 Dose: 20 mg ASSESSMENT AND PLAN: URI Acute Bronchospasm LV Systolic Dysfunction Acute Kidney Injury Atrial Fibrillation with RVR - inhaled bronchodilators - O2 to keep Spo2 >90% - rate controlled - continue anticoagulation - monitor urine output, creatinine - can monitor on telemetry
--- NOTE | 2018-10-26 14:20 | PN ---
Progress Note, Physician History of Present Illness: doing well no new issues breathing well - Current Medication List Current Medications: Active Medications Acetaminophen (Tylenol -) 650 mg PO Q4H PRN PRN Reason: FEVER Acetaminophen (Ofirmev Injection -) 1,000 mg IVPB Q6H PRN PRN Reason: FEVER; IF PO NT WORK Atorvastatin Calcium (Lipitor -) 10 mg PO [facility] Last Admin: 10/25/18 21:05 Dose: 10 mg Carvedilol 6.25 mg/ Carvedilol (12.5 mg) 18.75 mg PO BID [facility] Last Admin: 10/26/18 10:30 Dose: 18.75 mg Chlorhexidine Gluconate (Hibiclens For Decolonization -) 1 applic TP [facility] Last Admin: 10/25/18 21:05 Dose: 1 applic Furosemide (Lasix -) 20 mg PO DAILY [facility] Last Admin: 10/26/18 10:30 Dose: 20 mg Guaifenesin (Robitussin -) 10 ml PO Q6H PRN PRN Reason: COUGH Last Admin: 10/25/18 14:22 Dose: 10 ml Ipratropium [place] (Atrovent 0.02% Nebulizer -) 1 amp NEB RTID [facility] Last Admin: 10/26/18 07:45 Dose: 1 amp Mupirocin (Bactroban Ointment (For Decolonization) -) 1 applic NS BID [facility] Stop: 10/28/18 21:59 Last Admin: 10/25/18 21:04 Dose: 1 applic Rivaroxaban (Xarelto -) 20 mg PO DAILY@1800 [facility] Last Admin: 10/25/18 17:51 Dose: 20 mg - Objective Vital Signs: Vital Signs Temperature 97.3 F L 10/26/18 10:00 Pulse Rate 101 H 10/26/18 12:18 Respiratory Rate 16 10/26/18 12:18 Blood Pressure 88/55 L 10/26/18 12:18 O2 Sat by Pulse Oximetry (%) 100 10/26/18 09:00 Constitutional: Yes: No Distress, Calm Cardiovascular: Yes: S1, S2 Respiratory: Yes: Regular, CTA Bilaterally Gastrointestinal: Yes: Normal Bowel Sounds, Soft Musculoskeletal: Yes: WNL Extremities: Yes: WNL Neurological: Yes: Alert, Oriented Psychiatric: Yes: Alert, Oriented Labs: CBC, BMP 10/26/18 05:15 10/26/18 05:15 INR, PTT INR 1.39 (0.82-1.09) H 10/22/18 19:07 Assessment/Plan Imaging - Results Chest X-ray: Report Reviewed Cat Scan: Report Reviewed Problem List - Problems (1) Atrial fibrillation with RVR Code(s): I48.91 - UNSPECIFIED ATRIAL FIBRILLATION Assessment/Plan 83 y.o. male with PMH of HTN, HLD, Atrial Fibrillation s/p defibrillator presenting to [facility] ER with dry cough, fever, mild throat discomfort whose has had similar symptoms. Was transferred to ICU for hypotension after Lasix administration currently afebrile,alert, without respiratory distress. CT of the chest with mild RLL atelectasis without acute infiltrates, pt without leukocytosis, lactic acidosis. Suspect URI/ Viral Syndrome AFIB s/p defibrillator OPAL/volume depletion HTN HLD patient stable incentive carmita no abx at this time rest as per the team
[2018-10-26 14:54] VITALS: BP 130/94; PULSE 102; TEMP 97.7
--- NOTE | 2018-10-28 08:50 | DS ---
Physical Examination Vital Signs: Vital Signs Temperature 97.7 F 10/26/18 14:53 Pulse Rate 102 H 10/26/18 14:53 Respiratory Rate 25 H 10/26/18 14:53 Blood Pressure 130/94 10/26/18 14:53 O2 Sat by Pulse Oximetry (%) 100 10/26/18 09:00 Constitutional: Yes: No Distress, Calm Eyes: Yes: EOM Intact Cardiovascular: Yes: Tachycardia, Pulse Irregular Respiratory: Yes: CTA Bilaterally Gastrointestinal: Yes: Normal Bowel Sounds, Soft Edema: No Peripheral Pulses WNL: Yes Neurological: Yes: WNL Labs: CBC, BMP 10/26/18 05:15 10/26/18 05:15 Discharge Summary Reason For Visit: AFIB/PNEUMONIA Hospital Course: admitted for febrile respiratory illness, likely viral cultures are negative rapid afib with hypotension after diuresis continued coreg as tolerated by BP held diureisis nonischemic cardiomyopathy EF 25-30%~ AICD CT chest without contrast showed no infiltrates Echo showed EF 25-30%, mod MR, TR hemodinamically sable for several days now, offers no complaints, anxious to go home needs close outp f/up Condition: Fair - Instructions Diet, Activity, Other Instructions: needsto see this week Referrals: Casey Onofre MD [Primary Care Provider] - Disposition: VNS/HOME HEALTH CARE - Home Medications Comprehensive Discharge Medication List: Ambulatory Orders Carvedilol [Coreg -] 18.75 mg PO BID 10/22/18 Rivaroxaban [Xarelto -] 20 mg PO DAILY 10/22/18 Simvastatin [Zocor -] 20 mg PO HS 10/22/18 Guaifenesin [Robitussin -] 10 ml PO Q6H PRN cup 10/26/18
--- NOTE | 2018-12-04 12:48 | EKG ---
Test Reason : Blood Pressure : / mmHG Vent. Rate : 116 BPM Atrial Rate : 086 BPM P-R Int : 000 ms QRS Dur : 106 ms QT Int : 344 ms P-R-T Axes : 000 -88 -13 degrees QTc Int : 478 ms ATRIAL FIBRILLATION WITH RAPID VENTRICULAR RESPONSE LEFT AXIS DEVIATION LOW VOLTAGE QRS ANTEROLATERAL INFARCT , AGE UNDETERMINED ABNORMAL ECG WHEN COMPARED WITH ECG OF 22-OCT-2018 18:54, NO SIGNIFICANT CHANGE WAS FOUND Confirmed by VERENICE QUEVEDO MD ([id number]) on 12/04/2018 12:48:05 PM Referred By: LEONORA/HIREN Confirmed By:VERENICE QUEVEDO MD
== END 2018-10-26 15:59 | disposition home health service (06) | DRG 292 ==
LOC: FER 18:35 → FM/S 23:04 → JICU 10-23 19:30
PROVIDERS: ADMIT Internal Medicine; ATTEND Internal Medicine
DX: I11.0 Hypertensive heart disease with heart failure (principal); J84.9 Interstitial pulmonary disease, unspecified; I48.1 Persistent atrial fibrillation; N17.9 Acute kidney failure, unspecified; J98.11 Atelectasis; I50.33 Acute on chronic diastolic (congestive) heart failure; Z86.73 Personal history of transient ischemic attack (TIA), and cerebral infarction without residual deficits; Z79.01 Long term (current) use of anticoagulants; E86.9 Volume depletion, unspecified; I95.2 Hypotension due to drugs; T50.1X5A Adverse effect of loop [high-ceiling] diuretics, initial encounter; B34.9 Viral infection, unspecified; I42.8 Other cardiomyopathies; E78.5 Hyperlipidemia, unspecified
CPT/HCPCS: 36415; 71045-TC-FY; 71250-TC; 80048; 80053; 81003; 82803; 82962; 83605; 83735; 83880; 84100; 84484; 85025; 85027; 85610; 85730; 87040; 87086; 87804; 87899; 93005; 93010; 93306-TC; 94640; 97116-GP; 97161-GP; 99284-25; J0131

== ENCOUNTER 2019-10-06 06:31 | Day surgery (SDC) | payer BC, OTHER ==
--- NOTE | 2019-10-05 11:58 | HP ---
- Patient Scheduled date of Surgery: 10/06/19 Scheduled Surgical Procedure: Phacoemulsification and cataract extraction with PCIOL Affected Eye: Right Chief Complaint (Indication for surgery): Decreased vision affecting ADLs - Ocular History Other Eye History: Other (none) Eye Medications: vigamox Previous Eye Surgery: none - Medical History Illnesses: Hypertension, Hypercholesterolemia, Other (CAD s/p defibrillator, afib, cardiomyopathy) Current Medications: Ambulatory Orders Carvedilol [Coreg -] 18.75 mg PO BID 10/22/18 Rivaroxaban [Xarelto -] 20 mg PO DAILY 10/22/18 Simvastatin [Zocor -] 20 mg PO HS 10/22/18 Guaifenesin [Robitussin -] 10 ml PO Q6H PRN cup 10/26/18 Allergies/Adverse Reactions: Allergies Allergy/AdvReac Type Severity Reaction Status Date / Time No Known Allergies Allergy Verified 10/22/18 18:36 Ocular Examination - Best Corrected Visual Acuity Distance: Right eye: 20/200 Distance: Left eye: 20/80 - External/Slit Lamp Examination Abnormalities: thick lid margins, arcus senilis - Intraocular Pressure Intraocular Pressure - Right eye: 19 Intraocular Pressure-Left eye: 19 - Lens Lens: 3+ NS vacuoles - Vitreous/Retina Vitreous/Retina: C:D 0.25 m/v/p wnl - Special Examination M - Right eye: -0.50-0.75 x 065 M - Left eye: -1.25 K - Right eye: 41.50/42 x 155 K - Left eye: 41.50/ 42.50 x 175 AL - Right eye: 24.07 AL - Left eye: 23.88 IOL bag: +21.5 AUOOTO IOL sulcus: +20.50 [id number] IOL AC: +18.0 [id number] - Impression Impression: Cataract Right Eye - Plan Plan: Phacoemulsification and cataract extraction - IOL Right eye Post-hospital care will be provided in office on: 10/07/19
[2019-10-05 12:42] VITALS: BMI 28.1
[~2019-10-06 06:31] MED LIST: TOBRAMYCIN/DEXAMETHASONE OPHTH. OINTMENT 1 TUBE TP ONE
[2019-10-06] MEDS ORDERED: CIPROFLOXACIN HCL 0.3% OPHTH 2.5ML BOTTLE OP SCH (06:45)
[2019-10-06] MEDS ORDERED: KETOROLAC TROMETHAMINE 0.5% EYE DROP 1 DROP DROPS OP SCH (06:45)
[2019-10-06] MEDS ORDERED: TROPICAMIDE 1% OPHTH SOLN 15 ML BOTTLE OP SCH (06:45)
[2019-10-06] MEDS ORDERED: PHENYLEPHRINE 2.5% OPHTH SOLN 15 ML BOTTLE OP SCH (06:45)
[2019-10-06] MEDS ORDERED: ACETAMINOPHEN 325 MG TABLET (FP) PO PRN (06:45)
[2019-10-06] MEDS ORDERED: CHONDROITIN SU A/HYALUR SOD 1 KIT ONE (07:10)
[2019-10-06] MEDS ORDERED: TETRACAINE 0.5% OPHTH SOLN 2 ML BOTTLE ONE (07:16)
[2019-10-06] MEDS ORDERED: TOBRAMYCIN/DEXAMETHASONE OPHTH. OINTMENT 1 TUBE ONE (07:16)
[2019-10-06 07:23] VITALS: TEMP 97.6
[2019-10-06] MEDS ORDERED: CIPROFLOXACIN HCL 0.3% OPHTH 2.5ML BOTTLE ONE (07:24)
[2019-10-06] MEDS ORDERED: KETOROLAC TROMETHAMINE 0.5% EYE DROP 1 DROP DROPS ONE (07:25)
[2019-10-06] MEDS ORDERED: PHENYLEPHRINE 2.5% OPHTH SOLN 15 ML BOTTLE ONE (07:25)
[2019-10-06] MEDS ORDERED: TROPICAMIDE 1% OPHTH SOLN 15 ML BOTTLE ONE (07:25)
[2019-10-06] MEDS ORDERED: CIPROFLOXACIN HCL 0.3% OPHTH 2.5ML BOTTLE OD ONE ×2 (07:30→07:40)
[2019-10-06] MEDS ORDERED: TROPICAMIDE 1% OPHTH SOLN 15 ML BOTTLE OD ONE ×2 (07:30→07:40)
[2019-10-06] MEDS ORDERED: PHENYLEPHRINE 2.5% OPHTH SOLN 15 ML BOTTLE OD ONE ×2 (07:30→07:40)
[2019-10-06] MEDS ORDERED: KETOROLAC TROMETHAMINE 0.5% EYE DROP 1 DROP DROPS OD ONE ×2 (07:30→07:40)
[2019-10-06] MEDS ORDERED: EPINEPHrine/PF 1 MG/1 ML (1:1,000) AMPULE ONE (07:36)
--- NOTE | 2019-10-06 08:37 | HP ---
History & Physical Update - History History: No Change - Physical Physical: No Change - Assessment Assessment: No Change - Plan Plan: No Change (Reviewed Dr. Onofre's H and P from 09/21/19, no changes)
[2019-10-06] MEDS ORDERED: TETRACAINE 0.5% OPHTH SOLN 2 ML BOTTLE TP ONE (08:54)
[2019-10-06] MEDS ORDERED: POVIDONE-IODINE 5% OPHTHALMIC PREP 30 ML SOLUTION OD ONE (08:55)
[2019-10-06] MEDS ORDERED: BSS (NA/CA/MG/K) BALANCED SALT SOLUTION OPHTH SOLN 15 ML BOTTLE OD ONE (09:03)
[2019-10-06] MEDS ORDERED: LIDOCAINE HCL 1% PRESERVATIVE FREE - 30ML VIAL IO ONE (09:03)
[2019-10-06] MEDS ORDERED: CHONDROITIN SU A/HYALUR SOD 1 KIT IO ONE (09:03)
[2019-10-06] MEDS ORDERED: EPINEPHrine/PF 1 MG/1 ML (1:1,000) AMPULE SQ ONE (09:10)
[2019-10-06] MEDS ORDERED: TOBRAMYCIN/DEXAMETHASONE OPHTH. OINTMENT 1 TUBE TP ONE (09:36)
--- NOTE | 2019-10-06 09:42 | OP ---
Ophthalmology Operative Note Pre-Operative Diagnosis: Cataract Affected Eye: Right Operation: Phacoemulsification and cataract extraction with PCIOL Findings: nuclear sclerotic cataract right eye Post-Operative Diagnosis: Same as Pre-op Cnmt: None Anesthesia: Topical Specimens Removed: none Estimated blood loss: < 1cc Drains & Tubes with Location: none Operative Report Dictated: Yes
--- NOTE | 2019-10-06 10:50 | OP ---
DATE OF OPERATION: 10/06/2019 PREOPERATIVE DIAGNOSIS: Nuclear sclerotic cataract, right eye. POSTOPERATIVE DIAGNOSIS: Nuclear sclerotic cataract, right eye. PROCEDURE: Phacoemulsification and cataract extraction with insertion of posterior chamber intraocular lens, right eye. SURGEON: Ondina Weathers MD CONSULTING MANAGER: None. ANESTHESIA: Topical. ANESTHESIOLOGIST: CE Juárez OPERATIVE PROCEDURE: The patient received Tetracaine eye drops and was gently sedated and prepped and draped in the usual sterile fashion so as to expose only the right eye. Ophthalmic Betadine was instilled into the inferior fornix and lashes were taped out of the surgical field. An eyelid speculum was placed into the right eye. Paracentesis was made in superior temporal clear cornea at the limbus. Then 0.5 mL of nonpreserved lidocaine 1% was injected into the anterior chamber and then 1 mL of dilute epinephrine 1:10,000 was injected into the anterior chamber to improve pupillary dilation. Viscoelastic material was instilled into the anterior chamber via the paracentesis. A 2.4-mm keratome blade was then used to create the main incision in temporal clear cornea at the limbus. A continuous curvilinear capsulorrhexis was performed using a cystotome and Utrata forceps. Hydrodissection of the lens cortex was performed using BSS on a cannula until the nucleus was noted to be freely rotating. The phacoemulsification tip was then inserted via the main wound and used to scope 2 perpendicular grooves into the lens nucleus. The nucleus was cracked into 4 quadrants. Each quadrant was lifted out of the capsule into the iris plane and individually phacoemulsified. The remaining cortical material was then aspirated using the irrigation/aspiration port. The capsular bag was inflated using ProVisc and a preloaded AcrySof lens model [id number] power +21.5 diopters was injected into the capsular bag. It was centered using a Sinskey hook. The residual viscoelastic material was removed from the anterior chamber using irrigation and aspiration. The wound edges were hydrated using BSS. The wound was tested for leakage. It was found to be slightly leaking. Therefore, one 10-0 nylon suture was placed across the wound and buried. The wound was again tested. It was watertight. Tobradex ointment was placed in the eye, and the speculum was removed from the eye, and the eyelid was closed. A sterile dressing and shield were placed over the eye. The patient was transferred to the recovery room in stable condition, told to follow up in 1 day. ONDINA WEATHERS M.D. [id number]
[2019-10-06 13:10] VITALS: BP 101/60; PULSE 74
== END 2019-10-06 10:55 | disposition home or self-care (01) ==
LOC: JASU-SURG 06:31
PROVIDERS: ATTEND Ophthalmology
PROC: 08RJ3JZ Replacement of Right Lens with Synthetic Substitute, Percutaneous Approach (ICD-10-PCS; principal; 2019-10-06 08:30)
DX: H25.11 Age-related nuclear cataract, right eye (principal)

== ENCOUNTER 2019-10-13 06:47 | Day surgery (SDC) | payer BC, OTHER ==
[2019-10-10 11:01] VITALS: BMI 28.1
[2019-10-13] MEDS ORDERED: CHONDROITIN SU A/HYALUR SOD 1 KIT ONE (07:01)
[2019-10-13 07:05] VITALS: TEMP 98
[2019-10-13] MEDS ORDERED: EPINEPHrine/PF 1 MG/1 ML (1:1,000) AMPULE ONE (07:06)
[2019-10-13] MEDS ORDERED: POVIDONE-IODINE 5% OPHTHALMIC PREP 30 ML SOLUTION ONE (07:06)
[2019-10-13] MEDS ORDERED: TRYPAN BLUE 0.5 ML DISP.SYRIN ONE (07:06)
[2019-10-13] MEDS ORDERED: ACETYLCHOLINE 1:100 INTRA-OCUL 20 MG/2 ML KIT ONE (07:06)
[2019-10-13] MEDS ORDERED: TETRACAINE 0.5% OPHTH SOLN 2 ML BOTTLE ONE (07:06)
[2019-10-13] MEDS ORDERED: TOBRAMYCIN/DEXAMETHASONE OPHTH. OINTMENT 1 TUBE ONE (07:07)
[2019-10-13] MEDS: DICLOFENAC SODIUM 0.1% OPHTHALMIC 2.5ML BOTTLE ONE ×2 (07:09→07:20)
[2019-10-13] MEDS: CIPROFLOXACIN HCL 0.3% OPHTH 2.5ML BOTTLE ONE ×2 (07:09→07:20)
[2019-10-13] MEDS: TROPICAMIDE 1% OPHTH SOLN 15 ML BOTTLE ONE ×2 (07:10→07:20)
[2019-10-13] MEDS: PHENYLEPHRINE 2.5% OPHTH SOLN 15 ML BOTTLE ONE ×2 (07:10→07:20)
[2019-10-13] MEDS ORDERED: ACETAMINOPHEN 325 MG TABLET (FP) PO PRN (07:20)
[2019-10-13] MEDS ORDERED: BSS (NA/CA/MG/K) BALANCED SALT SOLUTION OPHTH SOLN 15 ML BOTTLE OS ONE ×3 (07:23→07:53)
--- NOTE | 2019-10-13 07:24 | HP ---
- Patient Scheduled date of Surgery: 10/13/19 Scheduled Surgical Procedure: Phacoemulsification and cataract extraction with PCIOL Affected Eye: Left Chief Complaint (Indication for surgery): Decreased vision affecting ADLs - Ocular History Other Eye History: Other (none) Eye Medications: vigamox Previous Eye Surgery: s/p ce/pciol OD - Medical History Illnesses: Cardiac Disorders (Chest pain, SOB, [place], Valve disease) (s/p defibrillator), Hypertension, Hypercholesterolemia Current Medications: Ambulatory Orders Carvedilol [Coreg -] 18.75 mg PO BID 10/22/18 Rivaroxaban [Xarelto -] 20 mg PO HS 10/22/18 Simvastatin [Zocor -] 20 mg PO HS 10/22/18 Digoxin [Lanoxin -] 0.125 mg PO DAILY 10/05/19 Furosemide [Lasix] 40 mg PO DAILY 10/05/19 Lisinopril [Prinivil] 10 mg PO DAILY 10/05/19 Allergies/Adverse Reactions: Allergies Allergy/AdvReac Type Severity Reaction Status Date / Time No Known Allergies Allergy Verified 10/13/19 07:05 Ocular Examination - Best Corrected Visual Acuity Distance: Right eye: 20/40+ Distance: Left eye: 20/80 - External/Slit Lamp Examination Abnormalities: lid margin thickening, arcus - Intraocular Pressure Intraocular Pressure - Right eye: 15 Intraocular Pressure-Left eye: 19 - Lens Lens: 3+ NS vacuoles - Vitreous/Retina Vitreous/Retina: c:d 0.25 m/v/p wnl - Special Examination M - Right eye: +0.50 M - Left eye: -1.25 K - Right eye: 41.25/41.75 x155 K - Left eye: 41.50/42.50 x175 AL - Right eye: 24.07 AL - Left eye: 23.88 IOL bag: +22.0 AUOOTO IOL sulcus: +21.0 IOL AC: +18.0 - Impression Impression: Cataract Left Eye - Plan Plan: Phacoemulsification and cataract extraction - IOL Left eye Post-hospital care will be provided in office on: 10/14/19
--- NOTE | 2019-10-13 07:25 | HP ---
History & Physical Update - History History: No Change - Physical Physical: No Change - Assessment Assessment: No Change - Plan Plan: No Change (09/21/19 no changes)
[2019-10-13] MEDS ORDERED: LIDOCAINE HCL 1% PRESERVATIVE FREE - 30ML VIAL IO ONE ×3 (07:26→07:55)
[2019-10-13] MEDS ORDERED: CHONDROITIN SU A/HYALUR SOD 1 KIT IO ONE ×3 (07:26→07:55)
[2019-10-13] MEDS ORDERED: TOBRAMYCIN 0.3% OPHTH OINT 3.5 GM OS ONE ×2 (07:26→07:51)
[2019-10-13] MEDS ORDERED: TETRACAINE 0.5% HCL 0.6ML DROPPER.BOTTLE TP ONE ×3 (07:26→07:51)
[2019-10-13] MEDS ORDERED: EPINEPHrine/PF 1 MG/1 ML (1:1,000) AMPULE SQ ONE ×3 (07:27→08:01)
[2019-10-13] MEDS ORDERED: CIPROFLOXACIN HCL 0.3% OPHTH 2.5ML BOTTLE OP SCH (07:30)
[2019-10-13] MEDS ORDERED: PHENYLEPHRINE 2.5% OPHTH SOLN 15 ML BOTTLE OP SCH (07:30)
[2019-10-13] MEDS ORDERED: KETOROLAC TROMETHAMINE 0.5% EYE DROP 1 DROP DROPS OP SCH (07:30)
[2019-10-13] MEDS ORDERED: TROPICAMIDE 1% OPHTH SOLN 15 ML BOTTLE OP SCH (07:30)
[2019-10-13] MEDS ORDERED: MIDAZOLAM HCL 2 MG/2 ML SINGLE DOSE VIAL ONE (07:40)
--- NOTE | 2019-10-13 08:28 | OP ---
Ophthalmology Operative Note Pre-Operative Diagnosis: Cataract Affected Eye: Left Operation: Phacoemulsification and cataract extraction with PCIOL Findings: Nuclear cataract left eye Weather Stripper: None Anesthesiologist: Monica Cheung Anesthesia: Topical Specimens Removed: none Estimated blood loss: <1 cc Drains & Tubes with Location: none Operative Report Dictated: Yes
[2019-10-13 09:30] VITALS: BP 123/43; PULSE 82
--- NOTE | 2019-10-14 18:58 | OP ---
DATE OF OPERATION: DATE OF DICTATION: 10/13/2019 PREOPERATIVE DIAGNOSIS: Nuclear sclerotic cataract, left eye. POSTOPERATIVE DIAGNOSIS: Nuclear sclerotic cataract, left eye. PROCEDURE: Phacoemulsification and cataract extraction with insertion of posterior chamber intraocular lens, left eye. SURGEON: Ondina Weathers MD HEALTH DATA ANALYST: None. ANESTHESIA: Topical. ANESTHESIOLOGIST: MAGGIE Osullivan OPERATIVE PROCEDURE: The patient received Tetracaine eye drops and was gently sedated and prepped and draped in the usual sterile fashion so as to expose only the left eye. Ophthalmic Betadine was instilled into the inferior fornix and lashes were taped out of the surgical field. An eyelid speculum was placed into the left eye. Paracentesis was made in inferior temporal clear cornea at the limbus. Then 0.5 mL of nonpreserved lidocaine 1% was injected into the anterior chamber and then 1 mL of dilute epinephrine 1:10,000 was injected into the anterior chamber to improve pupillary dilation. Viscoelastic material was instilled into the anterior chamber via the paracentesis. A 2.4-mm keratome blade was then used to create the main incision in temporal clear cornea at the limbus. A continuous curvilinear capsulorrhexis was performed using a cystotome and Utrata forceps. Hydrodissection of the lens cortex was performed using BSS on a cannula until the nucleus was noted to be freely rotating. The phacoemulsification tip was then inserted via the main wound and used to scope 2 perpendicular grooves into the lens nucleus. The nucleus was cracked into 4 quadrants. Each quadrant was lifted out of the capsule into the iris plane and individually phacoemulsified. The remaining cortical material was then aspirated using the irrigation/aspiration port. The capsular bag was inflated using Provisc and a preloaded AcrySof lens model [id number] power diopters was injected into the capsular bag. It was centered using a Sinskey hook. The residual viscoelastic material was removed from the anterior chamber using irrigation and aspiration. The wound edges were hydrated using BSS. The wound was tested for leakage, and there was a question of leakage. Therefore, one 10-0 nylon interrupted suture was placed across the wound. It was again and was found to be watertight. Tobradex ointment was placed in the eye, and the speculum was removed from the eye, and the eyelid was closed. A sterile dressing and shield were placed over the eye. The patient was transferred to the recovery room in stable condition, told to follow up in 1 day. ONDINA WEATHERS M.D. [id number]
== END 2019-10-13 09:15 | disposition home or self-care (01) ==
LOC: JASU-SURG 06:47
PROVIDERS: ATTEND Ophthalmology
PROC: 08RK3JZ Replacement of Left Lens with Synthetic Substitute, Percutaneous Approach (ICD-10-PCS; principal; 2019-10-13 07:30)
DX: H25.12 Age-related nuclear cataract, left eye (principal)